=== PATIENT | male | born 1960 | race Caucasian/White ===

== ENCOUNTER 2018-01-06 13:53 | Emergency (ER) | payer BC ==
[2018-01-06] MEDS ORDERED: Metoclopramide 10 MG/2 ML SDV IVPUSH ONE (14:01)
--- NOTE | 2018-01-06 14:01 | EDM.PDOC ---
ED HPI GENERAL MEDICAL PROBLEM - General Chief Complaint: Neuro Symptoms/Deficits Stated Complaint: PASSED OUT Time Seen by Provider: 01/06/18 13:54 Source of Information: Reports: Patient History Limitations: Reports: No Limitations - History of Present Illness INITIAL COMMENTS - FREE TEXT/NARRATIVE: 57-year-old male presents to the ED through the ambulance bay. He is obtunded. His reports that he called her couple hours ago indicating that he was not feeling going good and was going to come home from work. When she arrived at noon she found him sitting in the car outside of the home confused and disoriented. He is a known diabetic but blood sugar here in the department at the bedside was 145. Apparently he has been vomiting on scene. Emesis was estimated to be about 500 mils in the collection chamber without any blood. Patient is unable to provide any useful history when I seen him. Once things calm down he was able to speak in one or 2 word sentences and the nurses were able to get him to identify that he was oriented to person place . 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 He presents cool clammy and diaphoretic .Initially I felt he was likely going to to be suffering from hypoglycemia. Therefore initially it is unclear what is causing his altered mental status. His is not here yet to help sort through what has happened to him. Onset: Today Onset Date: 01/06/18 Onset Time: 12:00 Duration: Hour(s): Location: Reports: Abdomen (Feeling queasy like he might vomit. Started feeling ill about 10:00 this morning) Quality: Reports: Other Severity: Moderate (Dizziness nausea.) Improves with: Reports: None Worsens with: Reports: None Context: Reports: Other (Patient by history has a neurogenic bladder and suspect gastroparesis and likely autonomic nervous system dysfunction related to diabetes. He states he's always feels queasy and he can vomit spontaneously at any time. Started to feel increasingly unwell while at work this morning and 40 his indicates likely going to go home from work. He did go home for dinner and did eat a little bit. He then did head back to work for short period of time.). Denies: Activity, Exercise, Lifting, Sick Contact, Trauma Associated Symptoms: Reports: Confusion, Diaphoresis, Loss of Appetite, Malaise , Nausea/Vomiting. 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 None.) - Related Data Allergies Allergy/AdvReac Type Severity Reaction Status Date / Time Iodinated Contrast- Oral and Allergy Hives Verified 01/07/18 09:30 IV Dye Home Meds: Home Meds Ascorbic Acid [Vitamin C] 500 mg PO DAILY 03/04/14 [History] Aspirin [Glascock Aspirin] 81 mg PO DAILY 03/04/14 [History] Doxazosin [Doxazosin Mesylate] 8 mg PO BEDTIME 03/04/14 [History] Multivitamin [Multivitamins] 1 each PO DAILY 03/04/14 [History] Multivitamins/Min/FA/Lut/Zeax [ICaps MV] 1 each PO DAILY 03/04/14 [History] Simvastatin [Zocor] 20 mg PO BEDTIME 03/04/14 [History] Insulin Aspart [NovoLOG] 1 ampule SQ DAILY 07/23/15 [History] Cranberry 500 mg PO DAILY 10/27/15 [History] Meloxicam 15 mg PO DAILY 10/27/15 [History] Calcium/Magnesium/Vit D3 [Calcium 500 MG] 1 tab PO DAILY 03/06/16 [History] Fish Oil/DHA/EPA [Fish Oil 1,200 MG] 1 cap PO DAILY 03/06/16 [History] Albuterol [Proventil HFA] 2 puff INH Q4H PRN 01/06/18 [History] Benzonatate 200 mg PO 01/06/18 [History] Past Medical History HEENT History: Reports: Impaired Vision Other HEENT History: wears glasses Cardiovascular History: Reports: Heart Murmur, High Cholesterol Gastrointestinal History: Reports: Other (See Below) Other Gastrointestinal History: gallstones. 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 Genitourinary History: Reports: Neurogenic Bladder (Self catheters himself 3 times daily.), Other (See Below) Other Genitourinary History: dysuria, UTI, cystitis, renal stricture Other Musculoskeletal History: arthirits joint pain Endocrine/Metabolic History: Reports: Diabetes, Type II Other Endocrine/Metabolic History: on insulin pump - Past Surgical History GI Surgical History: Reports: Colonoscopy Social & Family History - Tobacco Use Smoking Status *Q: Former Smoker Years of Tobacco use: 20 Second Hand Smoke Exposure: No - Recreational Drug Use Recreational Drug Use: No Drug Use in Last 12 Months: No - Living Situation & Occupation Living situation: Reports: Occupation: Employed ED ROS GENERAL - Review of Systems Review Of Systems: See Below Constitutional: Reports: Malaise, Weakness, Fatigue, Decreased Appetite, Weight Loss. Denies: Fever, Chills HEENT: Reports: Glasses Respiratory: Reports: No Symptoms. Denies: Cough, Sputum Cardiovascular: Reports: No Symptoms Endocrine: Reports: Fatigue GI/Abdominal: Reports: Abdominal Pain, Decreased Appetite, Nausea, Vomiting. Denies: Distension (Current vomiting while sitting in his car outside his home.) , Flatus, Hematemesis : Reports: Other (He last self catheterized at noon today.). Denies: Flank Pain Musculoskeletal: Reports: Back Pain, Joint Pain Skin: Reports: Pallor Neurological: Reports: Confusion, Dizziness, Trouble Speaking, Difficulty Walking Psychiatric: Reports: Confusion Hematologic/Lymphatic: Reports: No Symptoms Immunologic: Reports: No Symptoms ED EXAM, NEURO - Physical Exam Exam: See Below Exam Limited By: Altered Mental Status ( is confused disoriented and appears lethargic and unable to provide any useful history at the initial time of examination.) General Appearance: Severe Distress (Cool pallid confused disoriented and lethargic. By history he has been vomiting in his vehicle outside his home.) Eye Exam: Bilateral Eye: Normal Inspection, PERRL (No gaze palsy appreciated) Throat/Mouth: Normal Inspection, Normal Lips, Normal Oropharynx, Other (No evidence of tongue injury to suggest seizure.) Head Exam: Atraumatic, Normocephalic Neck: Normal Inspection, Supple, Non-Tender, Full Range of Motion. No: Lymphadenopathy (L), Lymphadenopathy (R) Respiratory/Chest: Lungs Clear, Respiratory Distress (On my assessment he is hyperventilating at 26/m.), Other (Upper lung parekh appear to be clear with no evidence of aspiration.). No: Crackles, Rales, Rhonchi, Wheezing Cardiovascular: Normal Peripheral Pulses, Regular Rate, Rhythm, No Edema, No Gallop, Systolic Murmur (Grade 1 pansystolic ejection murmur heard best at the left lateral sternal border.) GI/Abdominal: Normal Bowel Sounds, Soft, Non-Tender, No Organomegaly Neurological: Other (Neuro exam was initially not able to be carried out because the patient was so confused and disoriented he could not cooperate. He appeared lethargic speech was one or 2 word sentences.). No: Oriented x 3 DTR: 0: Achilles (R), Achilles (L), 1+: Bicep (R), Bicep (L), Patella (R), Patella (L) Back Exam: Normal Inspection Extremities: Normal Inspection, Normal Range of Motion, Non-Tender, Other (No signs of injuries to his extremities.) Skin Exam: Cool, Diaphoretic, Other (Pallid cool clammy and diaphoretic.) EKG INTERPRETATION EKG Date: 01/06/18 Time: 14:10 Rhythm: NSR Rate (Beats/Min): 62 Lavina: LAD-Left Lavina Deviation (Mild plaque left axis deviation of -5) P-Wave: Present (First-degree AV block.) QRS: Other (There are Q waves in V1 and V2 and near Q-wave in V3 consideration for an old anteroseptal myocardial infarction evident.) ST-T: Other (Diffuse acute repolarization abnormality appreciated in the anteroseptal leads.) QT: Normal EKG Interpretation Comments: Abnormal ECG Course - Vital Signs Last Recorded V/S: Last Vital Signs Temp 36.6 C 01/06/18 14:00 Pulse 69 01/06/18 14:00 Resp 17 01/06/18 14:00 BP 156/90 H 01/06/18 14:00 Pulse Ox 100 01/06/18 14:00 - Orders/Labs/Meds Orders: Active Orders 24 hr Category Date Time Status Blood Glucose Check, Bedside [RC] ONETIME Care 01/06/18 13:57 Active EKG Documentation Completion [RC] STAT Care 01/06/18 13:55 Active EKG Documentation Completion [RC] STAT Care 01/06/18 13:56 Inactive CULTURE URINE [RM] Stat Lab 01/06/18 16:00 Results Labs: Laboratory Tests 01/06/18 01/06/18 01/06/18 Range/Units 13:50 13:50 13:50 WBC 5.86 (4.23-9.07) K/mm3 RBC 4.91 (4.63-6.08) M/mm3 Hgb 14.3 (13.7-17.5) gm/L Hct 42.4 (40.1-51.0) % MCV 86.4 (79.0-92.2) fl MCH 29.1 (25.7-32.2) pg MCHC 33.7 (32.2-35.5) g/dl RDW Std Deviation 40.2 (35.1-43.9) fL Plt Count 207 (163-337) K/mm3 MPV 9.6 (9.4-12.3) fl Neutrophils % (Manual) 43 (40-60) % Band Neutrophils % 0 (0-10) % Lymphocytes % (Manual) 47 H (20-40) % Atypical Lymphs % 0 % Monocytes % (Manual) 4 (2-10) % Eosinophils % (Manual) 5 (0.8-7.0) % Basophils % (Manual) 1 (0.2-1.2) Platelet Estimate Adequate RBC Morph Comment Normal PT 9.7 (8.0-13.0) SECONDS INR 0.90 D-Dimer, Quantitative (0.19-0.59) mg/L Puncture Site ABG pH (7.35-7.45) ABG pCO2 (35.0-45.0) mmHg ABG pO2 (80.0-100.0) mmHg ABG HCO3 (22.0-26.0) meq/L ABG O2 Saturation (96.0-97.0) % ABG Base Excess (-2-2.0) ABG Carboxyhemoglobin (0.00-1.50) %THgb FiO2 (21.00-100.00) % Sodium 141 (136-145) mEq/L Potassium 3.3 L (3.5-5.1) mEq/L Chloride 103 (98-107) mEq/L Carbon Dioxide 24 (21-32) mEq/L Anion Gap 17.3 H (5-15) BUN 16 (7-18) mg/dL Creatinine 1.3 (0.7-1.3) mg/dL Est Cr Clr Drug Dosing 62.12 mL/min Estimated GFR (MDRD) 57 (>60) mL/min BUN/Creatinine Ratio 12.3 L (14-18) Glucose 139 H (74-106) mg/dL Calcium 9.4 (8.5-10.1) mg/dL Total Bilirubin 0.4 (0.2-1.0) mg/dL AST 30 (15-37) U/L ALT 38 (16-63) U/L Alkaline Phosphatase 56 (46-116) U/L CK-MB (CK-2) 0.9 (0-3.6) ng/ml Troponin I < 0.017 (0.00-0.056) ng/mL C-Reactive Protein < 0.2 (<1.0) mg/dL Total Protein 7.5 (6.4-8.2) g/dl Albumin 4.1 (3.4-5.0) g/dl Globulin 3.4 gm/dL Albumin/Globulin Ratio 1.2 (1-2) Urine Color (Yellow) Urine Appearance (Clear) Urine pH (5.0-8.0) Ur Specific [place] (1.005-1.030) Urine Protein (Negative) Urine Glucose (UA) (Negative) Urine Ketones (Negative) Urine Occult Blood (Negative) Urine Nitrite (Negative) Urine Bilirubin (Negative) Urine Urobilinogen (0.2-1.0) Ur Leukocyte Esterase (Negative) Urine RBC (0-5) /hpf Urine WBC (0-5) /hpf Ur Epithelial Cells (0-5) /hpf Urine Bacteria (FEW) /hpf Urine Mucus (FEW) /hpf Urine Opiates Screen (NEGATIVE) Ur Buprenorphine Scrn (NEGATIVE) Ur Oxycodone Screen (NEGATIVE) Urine Methadone Screen (NEGATIVE) Ur Propoxyphene Screen (NEGATIVE) Ur Barbiturates Screen (NEGATIVE) Ur Tricyclics Screen (NEGATIVE) Ur Phencyclidine Scrn (NEGATIVE) Ur Amphetamine Screen (NEGATIVE) U Methamphetamines Scrn (NEGATIVE) U Benzodiazepines Scrn (NEGATIVE) U Cocaine Metab Screen (NEGATIVE) U Marijuana (THC) Screen (NEGATIVE) Ethyl Alcohol 0.00 (0.00) gm% 01/06/18 01/06/18 01/06/18 Range/Units 13:50 13:59 14:25 WBC (4.23-9.07) K/mm3 RBC (4.63-6.08) M/mm3 Hgb (13.7-17.5) gm/L Hct (40.1-51.0) % MCV (79.0-92.2) fl MCH (25.7-32.2) pg MCHC (32.2-35.5) g/dl RDW Std Deviation (35.1-43.9) fL Plt Count (163-337) K/mm3 MPV (9.4-12.3) fl Neutrophils % (Manual) (40-60) % Band Neutrophils % (0-10) % Lymphocytes % (Manual) (20-40) % Atypical Lymphs % % Monocytes % (Manual) (2-10) % Eosinophils % (Manual) (0.8-7.0) % Basophils % (Manual) (0.2-1.2) Platelet Estimate RBC Morph Comment PT (8.0-13.0) SECONDS INR D-Dimer, Quantitative 0.33 (0.19-0.59) mg/L Puncture Site Lt radial ABG pH 7.61 H* (7.35-7.45) ABG pCO2 21.7 L (35.0-45.0) mmHg ABG pO2 68.0 L (80.0-100.0) mmHg ABG HCO3 21.9 L (22.0-26.0) meq/L ABG O2 Saturation 97.6 H (96.0-97.0) % ABG Base Excess 2.2 H (-2-2.0) ABG Carboxyhemoglobin 1.7 H (0.00-1.50) %THgb FiO2 0.00 L (21.00-100.00) % Sodium (136-145) mEq/L Potassium (3.5-5.1) mEq/L Chloride (98-107) mEq/L Carbon Dioxide (21-32) mEq/L Anion Gap (5-15) BUN (7-18) mg/dL Creatinine (0.7-1.3) mg/dL Est Cr Clr Drug Dosing mL/min Estimated GFR (MDRD) (>60) mL/min BUN/Creatinine Ratio (14-18) Glucose (74-106) mg/dL Calcium (8.5-10.1) mg/dL Total Bilirubin (0.2-1.0) mg/dL AST (15-37) U/L ALT (16-63) U/L Alkaline Phosphatase (46-116) U/L CK-MB (CK-2) (0-3.6) ng/ml Troponin I (0.00-0.056) ng/mL C-Reactive Protein (<1.0) mg/dL Total Protein (6.4-8.2) g/dl Albumin (3.4-5.0) g/dl Globulin gm/dL Albumin/Globulin Ratio (1-2) Urine Color (Yellow) Urine Appearance (Clear) Urine pH (5.0-8.0) Ur Specific [place] (1.005-1.030) Urine Protein (Negative) Urine Glucose (UA) (Negative) Urine Ketones (Negative) Urine Occult Blood (Negative) Urine Nitrite (Negative) Urine Bilirubin (Negative) Urine Urobilinogen (0.2-1.0) Ur Leukocyte Esterase (Negative) Urine RBC (0-5) /hpf Urine WBC (0-5) /hpf Ur Epithelial Cells (0-5) /hpf Urine Bacteria (FEW) /hpf Urine Mucus (FEW) /hpf Urine Opiates Screen (NEGATIVE) Ur Buprenorphine Scrn (NEGATIVE) Ur Oxycodone Screen (NEGATIVE) Urine Methadone Screen (NEGATIVE) Ur Propoxyphene Screen (NEGATIVE) Ur Barbiturates Screen (NEGATIVE) Ur Tricyclics Screen (NEGATIVE) Ur Phencyclidine Scrn (NEGATIVE) Ur Amphetamine Screen (NEGATIVE) U Methamphetamines Scrn (NEGATIVE) U Benzodiazepines Scrn (NEGATIVE) U Cocaine Metab Screen (NEGATIVE) U Marijuana (THC) Screen (NEGATIVE) Ethyl Alcohol (0.00) gm% 01/06/18 01/06/18 Range/Units 16:05 16:05 WBC (4.23-9.07) K/mm3 RBC (4.63-6.08) M/mm3 Hgb (13.7-17.5) gm/L Hct (40.1-51.0) % MCV (79.0-92.2) fl MCH (25.7-32.2) pg MCHC (32.2-35.5) g/dl RDW Std Deviation (35.1-43.9) fL Plt Count (163-337) K/mm3 MPV (9.4-12.3) fl Neutrophils % (Manual) (40-60) % Band Neutrophils % (0-10) % Lymphocytes % (Manual) (20-40) % Atypical Lymphs % % Monocytes % (Manual) (2-10) % Eosinophils % (Manual) (0.8-7.0) % Basophils % (Manual) (0.2-1.2) Platelet Estimate RBC Morph Comment PT (8.0-13.0) SECONDS INR D-Dimer, Quantitative (0.19-0.59) mg/L Puncture Site ABG pH (7.35-7.45) ABG pCO2 (35.0-45.0) mmHg ABG pO2 (80.0-100.0) mmHg ABG HCO3 (22.0-26.0) meq/L ABG O2 Saturation (96.0-97.0) % ABG Base Excess (-2-2.0) ABG Carboxyhemoglobin (0.00-1.50) %THgb FiO2 (21.00-100.00) % Sodium (136-145) mEq/L Potassium (3.5-5.1) mEq/L Chloride (98-107) mEq/L Carbon Dioxide (21-32) mEq/L Anion Gap (5-15) BUN (7-18) mg/dL Creatinine (0.7-1.3) mg/dL Est Cr Clr Drug Dosing mL/min Estimated GFR (MDRD) (>60) mL/min BUN/Creatinine Ratio (14-18) Glucose (74-106) mg/dL Calcium (8.5-10.1) mg/dL Total Bilirubin (0.2-1.0) mg/dL AST (15-37) U/L ALT (16-63) U/L Alkaline Phosphatase (46-116) U/L CK-MB (CK-2) (0-3.6) ng/ml Troponin I (0.00-0.056) ng/mL C-Reactive Protein (<1.0) mg/dL Total Protein (6.4-8.2) g/dl Albumin (3.4-5.0) g/dl Globulin gm/dL Albumin/Globulin Ratio (1-2) Urine Color Yellow (Yellow) Urine Appearance Clear (Clear) Urine pH 8.5 H (5.0-8.0) Ur Specific [place] 1.020 (1.005-1.030) Urine Protein Trace H (Negative) Urine Glucose (UA) Negative (Negative) Urine Ketones 1+ H (Negative) Urine Occult Blood Negative (Negative) Urine Nitrite Negative (Negative) Urine Bilirubin Negative (Negative) Urine Urobilinogen 0.2 (0.2-1.0) Ur Leukocyte Esterase Trace H (Negative) Urine RBC 0-5 (0-5) /hpf Urine WBC 5-10 H (0-5) /hpf Ur Epithelial Cells 0-5 (0-5) /hpf Urine Bacteria Moderate H (FEW) /hpf Urine Mucus Few (FEW) /hpf Urine Opiates Screen Negative (NEGATIVE) Ur Buprenorphine Scrn Negative (NEGATIVE) Ur Oxycodone Screen Negative (NEGATIVE) Urine Methadone Screen Negative (NEGATIVE) Ur Propoxyphene Screen Negative (NEGATIVE) Ur Barbiturates Screen Negative (NEGATIVE) Ur Tricyclics Screen Negative (NEGATIVE) Ur Phencyclidine Scrn Negative (NEGATIVE) Ur Amphetamine Screen Negative (NEGATIVE) U Methamphetamines Scrn Negative (NEGATIVE) U Benzodiazepines Scrn Negative (NEGATIVE) U Cocaine Metab Screen Negative (NEGATIVE) U Marijuana (THC) Screen Negative (NEGATIVE) Ethyl Alcohol (0.00) gm% Meds: Medications Discontinued Medications Generic Name Dose Route Start Last Admin Trade Name Freq PRN Reason Stop Dose Admin Sodium Chloride 1,000 mls @ 150 mls/hr 01/06/18 14:15 01/06/18 14:18 Normal Saline IV 150 mls/hr ASDIRECTED NASREEN Administration Sodium Chloride 500 mls @ 999 mls/hr 01/06/18 17:31 Normal Saline IV 01/06/18 18:01 .BOLUS ONE Metoclopramide HCl 10 mg 01/06/18 14:01 01/06/18 14:18 Reglan IVPUSH 01/06/18 14:02 10 mg ONETIME ONE Administration - Radiology Interpretation Free Text/Narrative:: 57-year-old male presents to the ED in a rather obtunded state. He's cool clammy and continues to vomit. Initially he was unable to provide any useful history. Turn for a possible neurological event her hypoglycemia was evident. Blood sugar the bedside was 143. He was therefore taken to CT immediately and CT of the brain appears to be normal. History provided by his indicates that he called her at 10:00 this morning indicating he was not feeling well was going to go home from work. When she went home at noon she found him in the car still parked in front of the house and he had vomited over 500 mils into a bag. No blood was evident. He was cool clammy and diaphoretic and she therefore called the ambulance. Plan routine labs ABGs to make sure he is not exposed to carbon monoxide. - Re-Assessments/Exams Free Text/Narrative Re-Assessment/Exam: 01/06/18 14:06 CT of his brain and head is been completed. It reveals no skull fractures no intracranial bleeding or mass effect. No signs of obvious ischemic change. One view chest x-ray is once again poorly done. Is rotated to the right making the right hilum and superior mediastinum more magnified than normal. He appears to have bilateral mild pulmonary artery distention. Mild diffuse vascular congestion pattern. Heart size is normal. Old healed fracture left clavicle appreciated minimal scoliosis appreciated of the thoracic spine. 01/06/18 16:08 White count is 5.86 with a normal differential of 43% neutrophils and 47% lymphocytes suggesting a viral etiology. Hemoglobin is 14.3 with hematocrit of 42.4. Platelet count 207,000. PT is 9.7 with an INR of 0.90. D-dimer normal at 0.33. His ABGs revealed a pH of 7.61 i.e. a respiratory alkalosis. PCO2 is 21.7. PO2 of 68.0 bicarbonate 21.9 low. O2 saturation was 97.6%. This does not correlate with a PCO2 of 68. Carboxyhemoglobin was normal at 1.7. Sodium was 141. Potassium 3.3. Chloride 103 with a bicarbonate 24. And a gap slightly elevated at 17.3. BUN of 16 creatinine 1.3. Glucose 139. Calcium 9.4. Liver function normal cardiac markers all normal. C-reactive protein less than 0.2. Blood alcohol 0. Awaiting urinalysis. He self caths 3 times daily. 01/06/18 17:32 the urine shows moderate bacteria which I cultured. However the leukocyte Estrace was only a trace and there is no pus cells on the micro-. Also get him up standing and walking he is orthostatic with BP dropping from 175 -138 systolic. His may be autonomic dysfunction due to his diabetes. However he is been ill the last several days and there is a trace of ketones in his urine. Blood sugar currently is reading on his monitor 155. Plan I will give him normal saline 500 mils bolus. 01/06/18 1830: Had him up walking around in his room and he is doing fine. Repeat orthostatic BPs reveal no orthostasis. He states he feels much improved. He will therefore be discharged home in the care of his . The exact cause of his spell today is unclear. Possible gastroenteritis with spontaneous nausea vomiting and severe vagal reflex I suspect clinically has a gastroparesis and likely autonomic nervous system dysfunction related to his diabetes. He will be following up with his primary care physician Departure - Departure Time of Disposition: 18:36 Disposition: Home, Self-Care 01 Condition: Fair Clinical Impression: Vaso-vagal reaction Nausea & vomiting Qualifiers: Vomiting type: bilious vomiting Qualified Code(s): R11.14 - Bilious vomiting - Discharge Information Instructions: Gastroparesis Referrals: Panda Bright MD [Primary Care Provider] - Forms: ED Department Discharge Additional Instructions: Evaluation in the emergency room today in regards to acute onset of illness with nausea vomiting. He already ill with RSV virus infection with harsh paroxysmal choking cough at times. This was diagnosed on Wednesday [address] of the head did not show any abnormalities as when he presented to the ED were rather obtunded cool and clammy with a normal blood sugar of 145. CT was done to rule out any brain bleeding that would cause your mentation to be abnormal. IV fluids were started he were given Reglan 10 mg IV to arrest vomiting. Lab work subsequently did not identify any positive your heart, liver kidneys etc. Did suggest a viral infection with a normal white count at 5.7. Lines of a bacterial infection were identified. He did identify that you're mildly volume depleted and therefore you're given an extra 500 mils of normal saline while in the ED and this improved her blood pressures to normal. Suggest off work tomorrow. Try and get over this viral upper respiratory tract infection as the cough with RSV will usually lasts at least a week. You appear to have some problems with her autonomic nervous system secondary to diabetes with bladder not emptying completely as well as likely the stomach not " churning" food normally which we call gastroparesis. This is a common problem in diabetics. May resume diet as tolerated. I will leave it up to you whether or not to continue with albuterol treatments as if you feel that they make things worse than I would discontinue this treatment as it is only beneficial in about 40% of patients. Cool mist medications sleeping quarters may be more beneficial to helping her cough. - My Orders Last 24 Hours: My Active Orders 01/06/18 13:55 EKG Documentation Completion [RC] STAT 01/06/18 13:56 EKG Documentation Completion [RC] STAT 01/06/18 13:57 Blood Glucose Check, Bedside [RC] ONETIME 01/06/18 16:00 CULTURE URINE [RM] Stat - Assessment/Plan Last 24 Hours: My Active Orders 01/06/18 13:55 EKG Documentation Completion [RC] STAT 01/06/18 13:56 EKG Documentation Completion [RC] STAT 01/06/18 13:57 Blood Glucose Check, Bedside [RC] ONETIME 01/06/18 16:00 CULTURE URINE [RM] Stat
--- NOTE | 2018-01-06 14:14 | CT ---
Head CT Technique: Multiple axial sections through the brain were obtained. Intravenous contrast was not utilized. Comparison: No prior intracranial imaging. Findings: Ventricles along with basal cisterns and sulci over the convexities are within normal limits for the patient's age. No abnormal parenchymal densities are seen. No evidence of intracranial hemorrhage. No midline shift or mass effect is seen. Bone window settings were reviewed which shows mild mucosal thickening scattered throughout the ethmoid sinuses as well as within the frontal sinus. No acute calvarial abnormality is seen. Impression: 1. Sinus disease which is most likely due to chronic sinusitis. 2. No acute intracranial abnormality is identified. Diagnostic code #2
[2018-01-06 14:15] VITALS: BP 156/90
[2018-01-06] MEDS ORDERED: Sodium Chloride 0.9% 1,000 ML IV SCH (14:15)
--- NOTE | 2018-01-06 14:44 | CR ---
Chest: Portable view of the chest was obtained. Comparison: No prior chest x-rays available. Heart size is normal. Upper mediastinum is normal. Lungs are clear. Old healed left clavicle fracture is noted. Minimal scoliosis is noted. Impression: 1. Incidental findings. Nothing acute is identified. Diagnostic code #2
[2018-01-06] MEDS ORDERED: Sodium Chloride 0.9% 500 ML IV ONE (17:31)
== END 2018-01-06 18:50 | disposition home or self-care (01) ==
LOC: JD.ED 13:53
DX: R55 Syncope and collapse (principal); R11.2 Nausea with vomiting, unspecified; Z87.891 Personal history of nicotine dependence; E78.00 Pure hypercholesterolemia, unspecified; E11.9 Type 2 diabetes mellitus without complications; Z79.82 Long term (current) use of aspirin; Z79.4 Long term (current) use of insulin; Z79.899 Other long term (current) drug therapy; Z91.041 Radiographic dye allergy status
CPT/HCPCS: 36415; 36600; 70450; 71045; 80053; 80306; 81001; 82375; 82553; 82803; 84484; 85025; 85379; 85610; 86140; 87086; 87088; 87186; 93005; 96361; 96374; 99285; G0480; J2765; J7040; P9612; 93010; 99284-25

== ENCOUNTER 2019-12-05 06:30 | Emergency (ER) | payer BC ==
[2019-12-05 06:41] VITALS: BP 154/64; PULSE 92
--- NOTE | 2019-12-05 08:01 | EDM.PDOC ---
ED HPI GENERAL MEDICAL PROBLEM - General Chief Complaint: Diabetic Complaint Stated Complaint: HIGH BLOOD SUGAR Time Seen by Provider: 12/05/19 06:58 Source of Information: Reports: Patient History Limitations: Reports: No Limitations - History of Present Illness INITIAL COMMENTS - FREE TEXT/NARRATIVE: The patient presents with elevated blood sugars. The patient is type I diabetic and he has an insulin pump. He was low after work last night and he took some sugar. He then went up all night. He was as high as 600. There has been no change in his insulin dosing. He has not been ill. He has no fever, chills, cough, congestion, runny nose, ear pain or sore throat. He has no chest pain, shortness of breath, abdominal pain, nausea or vomiting. This has happened before in September and no cause was found. Onset: Gradual Duration: Day(s): (Last night) Improves with: Reports: None Worsens with: Reports: None Associated Symptoms: Reports: No Other Symptoms - Related Data Allergies Allergy/AdvReac Type Severity Reaction Status Date / Time acetaminophen [From Tylenol] Allergy Other Verified 12/05/19 06:41 Iodinated Contrast Media Allergy Hives Verified 10/12/19 14:40 [Iodinated Contrast- Oral and IV Dye] Home Meds: Home Meds Ascorbic Acid [Vitamin C] 500 mg PO DAILY 03/04/14 [History] Aspirin [[place] Aspirin] 81 mg PO DAILY 03/04/14 [History] Doxazosin [Doxazosin Mesylate] 8 mg PO BEDTIME 03/04/14 [History] Multivitamin [Multivitamins] 1 each PO DAILY 03/04/14 [History] Multivitamins/Min/FA/Lut/Zeax [ICaps MV] 1 each PO DAILY 03/04/14 [History] Cranberry 500 mg PO DAILY 10/27/15 [History] Meloxicam 15 mg PO DAILY 10/27/15 [History] Calcium/Magnesium/Vit D3 [Calcium 500 MG] 1 tab PO DAILY 03/06/16 [History] Fish Oil/DHA/EPA [Fish Oil 1,200 MG] 1 cap PO DAILY 03/06/16 [History] Albuterol [Proventil HFA] 2 puff INH Q4H PRN 01/06/18 [History] Benzonatate 200 mg PO 02/08/18 [History] Insulin Aspart (Niacinamide) [Fiasp Penfill 100 Unit/ml Cart] 0 unit SQ DAILY [History] Rosuvastatin [Crestor] 8 mg PO DAILY 10/12/19 [History] Past Medical History HEENT History: Reports: Impaired Vision Other HEENT History: wears glasses Cardiovascular History: Reports: Heart Murmur, High Cholesterol Other Cardiovascular History: "Bicuspid aortic valve that flows both ways." Respiratory History: Reports: None Gastrointestinal History: Reports: Other (See Below) Other Gastrointestinal History: gallstones. 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 Fructose Malabsorption. Genitourinary History: Reports: Neurogenic Bladder, Other (See Below) Other Genitourinary History: dysuria, UTI, cystitis, renal stricture. Pt self caths. Other Musculoskeletal History: arthirits joint pain Neurological History: Reports: None Psychiatric History: Reports: None Endocrine/Metabolic History: Reports: Diabetes, Type II Other Endocrine/Metabolic History: on insulin pump Who Manages Your Pump: Patient (Self) Hematologic History: Reports: None Immunologic History: Reports: None Oncologic (Cancer) History: Reports: None Dermatologic History: Reports: None - Infectious Disease History Infectious Disease History: Reports: None - Past Surgical History GI Surgical History: Reports: Cholecystectomy, Colonoscopy, EGD Male Surgical History: Reports: Vasectomy, Other (See Below) Other Male Surgeries/Procedures: Cystoscopy Musculoskeletal Surgical History: Reports: Shoulder Surgery Other Musculoskeletal Surgeries/Procedures:: Right Shoulder Surgery Social & Family History - Tobacco Use Smoking Status *Q: Never Smoker - Caffeine Use Caffeine Use: Reports: Coffee - Living Situation & Occupation Living situation: Reports: Occupation: Employed ED ROS GENERAL - Review of Systems Review Of Systems: See Below Constitutional: Reports: No Symptoms HEENT: Reports: No Symptoms Respiratory: Reports: No Symptoms Cardiovascular: Reports: No Symptoms Endocrine: Reports: No Symptoms GI/Abdominal: Reports: No Symptoms : Reports: No Symptoms Musculoskeletal: Reports: No Symptoms Skin: Reports: No Symptoms ED EXAM GENERAL NO PERIP PULSE - Physical Exam Exam: See Below Exam Limited By: No Limitations General Appearance: Alert, No Apparent Distress Ears: Normal External Exam Nose: Normal Inspection Head: Atraumatic, Normocephalic Neck: Normal Inspection Respiratory/Chest: No Respiratory Distress, Lungs Clear, Normal Breath Sounds Cardiovascular: Regular Rate, Rhythm, No Edema, No Murmur GI/Abdominal: Soft, Non-Tender, No Organomegaly, No Mass Back Exam: Normal Inspection Extremities: Normal Inspection Course - Vital Signs Last Recorded V/S: Last Vital Signs Temp 97.5 F 12/05/19 06:38 Pulse 92 12/05/19 06:38 Resp 16 12/05/19 06:38 BP 154/64 H 12/05/19 06:38 Pulse Ox 97 12/05/19 06:38 - Orders/Labs/Meds Labs: Laboratory Tests 12/05/19 12/05/19 12/05/19 Range/Units 07:12 07:12 07:12 WBC 5.30 (4.23-9.07) K/mm3 RBC 4.87 (4.63-6.08) M/mm3 Hgb 14.2 (13.7-17.5) gm/dl Hct 42.6 (40.1-51.0) % MCV 87.5 (79.0-92.2) fl MCH 29.2 (25.7-32.2) pg MCHC 33.3 (32.2-35.5) g/dl RDW Std Deviation 40.8 (35.1-43.9) fL Plt Count 190 (163-337) K/mm3 MPV 10.0 (9.4-12.3) fl Neut % (Auto) 65.3 (34.0-67.9) % Lymph % (Auto) 21.5 L (21.8-53.1) % [place] % (Auto) 9.8 (5.3-12.2) % Eos % (Auto) 2.8 (0.8-7.0) Baso % (Auto) 0.6 (0.1-1.2) % Neut # (Auto) 3.46 (1.78-5.38) K/mm3 Lymph # (Auto) 1.14 L (1.32-3.57) K/mm3 [place] # (Auto) 0.52 (0.30-0.82) K/mm3 Eos # (Auto) 0.15 (0.04-0.54) K/mm3 Baso # (Auto) 0.03 (0.01-0.08) K/mm3 Manual Slide Review Puncture Site ABG pH (7.35-7.45) ABG pCO2 (35.0-45.0) mmHg ABG pO2 (80.0-100.0) mmHg ABG HCO3 (22.0-26.0) meq/L ABG O2 Saturation (96.0-97.0) % ABG Base Excess (-2-2.0) Matt Test A-a Gradient mmHg O2 Delivery Device FiO2 (21.00-100.00) % Sodium 134 L (136-145) mEq/L Potassium 4.6 (3.5-5.1) mEq/L Chloride 100 (98-107) mEq/L Carbon Dioxide 24 (21-32) mEq/L Anion Gap 14.6 (5-15) BUN 21 H (7-18) mg/dL Creatinine 1.1 (0.7-1.3) mg/dL Est Cr Clr Drug Dosing 74.09 mL/min Estimated GFR (MDRD) > 60 (>60) mL/min BUN/Creatinine Ratio 19.1 H (14-18) Glucose 447 H (74-106) mg/dL Serum Osmolality 310 H (280-300) mosm/kg Calcium 8.7 (8.5-10.1) mg/dL Total Bilirubin 0.8 (0.2-1.0) mg/dL AST 14 L (15-37) U/L ALT 21 (16-63) U/L Alkaline Phosphatase 55 (46-116) U/L Total Protein 6.9 (6.4-8.2) g/dl Albumin 3.9 (3.4-5.0) g/dl Globulin 3.0 gm/dL Albumin/Globulin Ratio 1.3 (1-2) Ketones (0.0-0.3) mM 12/05/19 12/05/19 Range/Units 07:12 07:18 WBC (4.23-9.07) K/mm3 RBC (4.63-6.08) M/mm3 Hgb (13.7-17.5) gm/dl Hct (40.1-51.0) % MCV (79.0-92.2) fl MCH (25.7-32.2) pg MCHC (32.2-35.5) g/dl RDW Std Deviation (35.1-43.9) fL Plt Count (163-337) K/mm3 MPV (9.4-12.3) fl Neut % (Auto) (34.0-67.9) % Lymph % (Auto) (21.8-53.1) % [place] % (Auto) (5.3-12.2) % Eos % (Auto) (0.8-7.0) Baso % (Auto) (0.1-1.2) % Neut # (Auto) (1.78-5.38) K/mm3 Lymph # (Auto) (1.32-3.57) K/mm3 [place] # (Auto) (0.30-0.82) K/mm3 Eos # (Auto) (0.04-0.54) K/mm3 Baso # (Auto) (0.01-0.08) K/mm3 Manual Slide Review Puncture Site Lt radial ABG pH 7.36 (7.35-7.45) ABG pCO2 40.2 (35.0-45.0) mmHg ABG pO2 87.0 (80.0-100.0) mmHg ABG HCO3 22.0 (22.0-26.0) meq/L ABG O2 Saturation 97.2 H (96.0-97.0) % ABG Base Excess -2.8 L (-2-2.0) Matt Test Positive A-a Gradient 13 mmHg O2 Delivery Device Room air FiO2 21.00 (21.00-100.00) % Sodium (136-145) mEq/L Potassium (3.5-5.1) mEq/L Chloride (98-107) mEq/L Carbon Dioxide (21-32) mEq/L Anion Gap (5-15) BUN (7-18) mg/dL Creatinine (0.7-1.3) mg/dL Est Cr Clr Drug Dosing mL/min Estimated GFR (MDRD) (>60) mL/min BUN/Creatinine Ratio (14-18) Glucose (74-106) mg/dL Serum Osmolality (280-300) mosm/kg Calcium (8.5-10.1) mg/dL Total Bilirubin (0.2-1.0) mg/dL AST (15-37) U/L ALT (16-63) U/L Alkaline Phosphatase (46-116) U/L Total Protein (6.4-8.2) g/dl Albumin (3.4-5.0) g/dl Globulin gm/dL Albumin/Globulin Ratio (1-2) Ketones 1.7 (0.0-0.3) mM Meds: Medications Discontinued Medications Generic Name Dose Route Start Last Admin Trade Name Yan PRN Reason Stop Dose Admin Insulin Human Regular 10 unit 12/05/19 08:13 12/05/19 08:29 Humulin R SUBCUT 12/05/19 08:14 10 unit ONETIME ONE Administration - Re-Assessments/Exams Free Text/Narrative Re-Assessment/Exam: 12/05/19 08:00 His CBC looks good. His Na was a little low at 134. His glucose was elevated at 447. His pH was normal at 7.36. 12/05/19 08:14 I have ordered insulin R 10 units. 12/05/19 08:53 His ketones were 1.7. I will discharge him home. I am not sure why his blood sugars have gone up. Departure - Departure Time of Disposition: 09:00 Disposition: Home, Self-Care 01 Condition: Good Clinical Impression: Hyperglycemia - Discharge Information *PRESCRIPTION DRUG MONITORING PROGRAM REVIEWED*: Not Applicable *COPY OF PRESCRIPTION DRUG MONITORING REPORT IN PATIENT MANDIE: Not Applicable Referrals: Panda Bright MD [Primary Care Provider] - 1 Week Forms: ED Department Discharge Additional Instructions: Drink plenty of fluids. Please return if you are worse. Sepsis Event Note - Evaluation Sepsis Screening Result: No Definite Risk - Focused Exam Vital Signs: Vital Signs Temp Pulse Resp BP Pulse Ox 12/05/19 06:38 97.5 F 92 16 154/64 H 97 Date Exam was Performed: 12/05/19 Time Exam was Performed: 08:53
[2019-12-05] MEDS ORDERED: Insulin Regular, Human 100 Units/ML 3 ML Vial SUBCUT ONE (08:13)
== END 2019-12-05 09:03 | disposition home or self-care (01) ==
LOC: JD.ED 06:30
DX: E10.65 Type 1 diabetes mellitus with hyperglycemia (principal); E87.1 Hypo-osmolality and hyponatremia; E78.00 Pure hypercholesterolemia, unspecified; R01.1 Cardiac murmur, unspecified; Z79.4 Long term (current) use of insulin; Z88.6 Allergy status to analgesic agent; Z91.041 Radiographic dye allergy status
CPT/HCPCS: 36415; 36600; 80053; 82009; 82803; 83930; 85025; 99283; J1815; 99284

== ENCOUNTER 2020-03-28 11:38 | Emergency (ER) | payer BC ==
[2020-03-28 11:47] VITALS: BP 153/69; PULSE 77
[2020-03-28] MEDS ORDERED: Metoclopramide 10 MG/2 ML SDV IVPUSH STA (12:09)
[2020-03-28] MEDS ORDERED: Ondansetron 4 MG/2 ML SDV IVPUSH ONE (12:09)
[2020-03-28] MEDS ORDERED: Sodium Chloride 0.9% 1,000 ML IV SCH (12:15)
--- NOTE | 2020-03-28 12:15 | EDM.PDOC ---
ED HPI GENERAL MEDICAL PROBLEM - General Chief Complaint: General Stated Complaint: [facility] Time Seen by Provider: 03/28/20 11:48 Source of Information: Reports: Patient History Limitations: Reports: Other (Reluctant to answer questions) - History of Present Illness INITIAL COMMENTS - FREE TEXT/NARRATIVE: Mr. Lee is a pleasant 59-year-old man with a past medical history significant for type 1 diabetes, a neurogenic bladder requiring self- catheterization, and a bicuspid aortic valve, who is now brought to the ED by EMS after he developed vertigo when he bent over at work morning. His symptoms are made worse with virtually any movement. He has associated nausea and vomiting. EMS found his blood glucose to be 147 in the field. He was given IV Zofran en route to the ED. The patient states that he has had similar symptoms 4 or 5 times, most recently about a year ago, of unknown cause. He states that his blood glucoses have been within normal range recently. He denies recent fever, chills, sore throat, ear pain, nasal or sinus congestion, cough, dyspnea, chest pain, palpitations, nausea, vomiting, constipation, diarrhea, abdominal pain, urinary symptoms, recent weight gain or weight loss, recent bloody bowel movements or black bowel movements, recent joint aches, headaches, or rashes. Here in the ED, the patient's initial BP is found to be elevated at 153/69, however, he is otherwise hemodynamically stable, afebrile, saturating 100% on room air. The patient's PCP is Dr. Panda Bright. His Community Youth Secretary is Dr. Chente Wang. - Related Data Allergies Allergy/AdvReac Type Severity Reaction Status Date / Time acetaminophen [From Tylenol] Allergy Severe Other Verified 03/28/20 11:47 Iodinated Contrast Media Allergy Severe Hives Verified 03/28/20 11:47 [Iodinated Contrast- Oral and IV Dye] Home Meds: Home Meds Ascorbic Acid [Vitamin C] 500 mg PO DAILY 03/04/14 [History] Aspirin [[place] Aspirin] 81 mg PO DAILY 03/04/14 [History] Doxazosin [Doxazosin Mesylate] 8 mg PO BEDTIME 03/04/14 [History] Multivitamin [Multivitamins] 1 each PO DAILY 03/04/14 [History] Multivitamins/Min/FA/Lut/Zeax [ICaps MV] 1 each PO DAILY 03/04/14 [History] Cranberry 500 mg PO DAILY 10/27/15 [History] Meloxicam 15 mg PO DAILY 10/27/15 [History] Calcium/Magnesium/Vit D3 [Calcium 500 MG] 1 tab PO DAILY 03/06/16 [History] Fish Oil/DHA/EPA [Fish Oil 1,200 MG] 1 cap PO DAILY 03/06/16 [History] Albuterol [Proventil HFA] 2 puff INH Q4H PRN 01/06/18 [History] Benzonatate 200 mg PO 01/06/18 [History] Insulin Aspart (Niacinamide) [Fiasp Penfill 100 Unit/ml Cart] 0 unit SQ DAILY [History] Rosuvastatin [Crestor] 8 mg PO DAILY 10/12/19 [History] Meclizine [Antivert] 1 tab PO Q6H PRN #10 tab 03/28/20 [Rx] Ondansetron [Zofran ODT] 1 tab PO Q8H PRN #10 tab.dis 03/28/20 [Rx] Past Medical History HEENT History: Reports: Impaired Vision Other HEENT History: wears glasses Cardiovascular History: Reports: High Cholesterol, Other (See Below) (Bicuspid aortic valve) Gastrointestinal History: Reports: Cholelithiasis, Other (See Below) (Fructose malabsorption) Genitourinary History: Reports: Neurogenic Bladder (self caths) Endocrine/Metabolic History: Reports: Diabetes, Type I - Past Surgical History GI Surgical History: Reports: Cholecystectomy (around 2006), Colonoscopy (x 1 or 2), EGD (x 1 or 2) Male Surgical History: Reports: Vasectomy, Other (See Below) (Cystoscopy x 2 or 3) Musculoskeletal Surgical History: Reports: Shoulder Surgery (right, arthroscopic ) Social & Family History - Tobacco Use Smoking Status *Q: Former Smoker Years of Tobacco use: 33 Packs/Tins Daily: 1 Month/Year Tobacco Last Used: Quit 2009 - Caffeine Use Caffeine Use: Reports: Coffee - Alcohol Use Alcohol Use History: Yes Alcohol Use Frequency: Rarely - Recreational Drug Use Recreational Drug Use: No - Living Situation & Occupation Living situation: Reports: , with Spouse 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 ED EXAM, GENERAL - Physical Exam Exam: See Below Exam Limited By: No Limitations General Appearance: Alert, WD/WN, Mild Distress (dry heaving with virtually any movement, including movement of the gurney) Eye Exam: Bilateral Eye: EOMI, Normal Inspection Ears: Normal External Exam, Normal Canal, Hearing Grossly Normal, Normal TMs Nose: Normal Inspection Throat/Mouth: Normal Inspection, Normal Lips, Normal Voice, No Airway Compromise Head: Atraumatic, Normocephalic Neck: Normal Inspection, Full Range of Motion Respiratory/Chest: No Respiratory Distress, Lungs Clear, Normal Breath Sounds, No Accessory Muscle Use Cardiovascular: Normal Peripheral Pulses, Regular Rate, Rhythm, No Edema, No Gallop, No JVD, No Rub, Systolic Murmur (Flow murmur heard at the apex, but heard best at the right upper sternal border) Peripheral Pulses: 4+: Radial (L), Radial (R) GI/Abdominal: Normal Bowel Sounds, Soft, Non-Tender, No Organomegaly, No Distention, No Abnormal Bruit, No Mass (Male) Exam: Deferred Rectal (Males) Exam: Deferred Back Exam: Normal Inspection, Full Range of Motion, NT Extremities: Normal Inspection, Normal Range of Motion, No Pedal Edema, Normal Capillary Refill Neurological: Alert, Oriented, CN II-XII Intact, Normal Cognition, No Motor/ Sensory Deficits Psychiatric: Flat Affect Skin Exam: Warm, Dry, Intact, Normal Color, No Rash EKG INTERPRETATION EKG Date: 03/28/20 Time: 11:41 Rhythm: NSR Rate (Beats/Min): 69 [place]: Normal P-Wave: Present (1st deg AVB) QRS: Normal (Late transition) ST-T: Normal QT: Normal Comparison: No Change (01/06/2018) Course - Vital Signs Last Recorded V/S: Last Vital Signs Temp 36.7 C 03/28/20 11:39 Pulse 77 03/28/20 11:39 Resp 21 H 03/28/20 11:39 BP 153/69 H 03/28/20 11:39 Pulse Ox 100 03/28/20 11:39 - Orders/Labs/Meds Labs: Laboratory Tests 03/28/20 03/28/20 03/28/20 Range/Units 11:50 11:50 11:50 WBC 6.40 (4.23-9.07) K/mm3 RBC 4.66 (4.63-6.08) M/mm3 Hgb 13.7 (13.7-17.5) gm/dl Hct 40.4 (40.1-51.0) % MCV 86.7 (79.0-92.2) fl MCH 29.4 (25.7-32.2) pg MCHC 33.9 (32.2-35.5) g/dl RDW Std Deviation 40.9 (35.1-43.9) fL Plt Count 230 (163-337) K/mm3 MPV 10.1 (9.4-12.3) fl Neutrophils % (Manual) 51 (40-60) % Band Neutrophils % 0 (0-10) % Lymphocytes % (Manual) 39 (20-40) % Atypical Lymphs % 0 % Monocytes % (Manual) 8 (2-10) % Eosinophils % (Manual) 1 (0.8-7.0) % Basophils % (Manual) 1 (0.2-1.2) Platelet Estimate Adequate RBC Morph Comment Normal D-Dimer, Quantitative 0.39 (0.19-0.50) mg/L Sodium 140 (136-145) mEq/L Potassium 3.5 (3.5-5.1) mEq/L Chloride 104 (98-107) mEq/L Carbon Dioxide 19 L (21-32) mEq/L Anion Gap 20.5 H (5-15) BUN 19 H (7-18) mg/dL Creatinine 1.2 (0.7-1.3) mg/dL Est Cr Clr Drug Dosing 67.92 mL/min Estimated GFR (MDRD) > 60 (>60) mL/min BUN/Creatinine Ratio 15.8 (14-18) Glucose 150 H (74-106) mg/dL Calcium 9.2 (8.5-10.1) mg/dL Magnesium 1.7 L (1.8-2.4) mg/dl Total Bilirubin 0.6 (0.2-1.0) mg/dL AST 21 (15-37) U/L ALT 25 (16-63) U/L Alkaline Phosphatase 47 (46-116) U/L Troponin I < 0.017 (0.00-0.056) ng/mL Total Protein 7.3 (6.4-8.2) g/dl Albumin 4.2 (3.4-5.0) g/dl Globulin 3.1 gm/dL Albumin/Globulin Ratio 1.4 (1-2) Meds: Medications Discontinued Medications Generic Name Dose Route Start Last Admin Trade Name Yan PRN Reason Stop Dose Admin Sodium Chloride 1,000 mls @ 150 mls/hr 03/28/20 12:15 03/28/20 12:18 Normal Saline IV 150 mls/hr ASDIRECTED NASREEN Administration Metoclopramide HCl 10 mg 03/28/20 12:09 03/28/20 12:18 Reglan IVPUSH 03/28/20 12:10 10 mg ONETIME STA Administration Ondansetron HCl 4 mg 03/28/20 12:09 03/28/20 12:16 Zofran IVPUSH 03/28/20 12:10 4 mg ONETIME ONE Administration - Re-Assessments/Exams Free Text/Narrative Re-Assessment/Exam: 03/28/20 12:11 As above, the patient presents with positional vertigo with nausea and vomiting. At present, he is too ill to obtain a meaningful [place]-Hallpike evaluation; he is reluctant to even cooperate with the neurologic examination. I will attempt to perform Reese-Hallpike maneuver if we can get his nausea and vomiting under control -I have ordered IV Reglan, IV Zofran, and IV fluid. I have ordered a work-up that includes blood work, a CT of his head without contrast, and an ECG. 03/28/20 14:16 CT of the head without contrast as read by Dr. Barrett as: 1. Nothing acute is identified on noncontrast head CT exam. 2. No significant change from previous study is seen. The patient's CBC is unremarkable. His CMP is remarkable for a bicarbonate decreased at 19 with an anion gap increased at 20.5. His BUN is elevated at 19 with a Cr normal at 1.2. His blood glucose is elevated at 150, with the remainder of his CMP being unremarkable. His magnesium level is slightly decreased at 1.7. His troponin is undetectably low. His D-dimer is within normal limits at 0.39. 03/28/20 14:59 I reevaluated the patient. He states that he is feeling entirely back to normal. I performed the Reese-Hallpike maneuver on him bilaterally, with no induction of nystagmus or vertigo. I will therefore discharge the patient home with prescriptions for both meclizine and Zofran, along with a referral to ENT, should his symptoms return. Departure - Departure Time of Disposition: 15:00 Disposition: Home, Self-Care 01 Condition: Good Clinical Impression: BPPV (benign paroxysmal positional vertigo), First degree AV block - Discharge Information *PRESCRIPTION DRUG MONITORING PROGRAM REVIEWED*: Not Applicable *COPY OF PRESCRIPTION DRUG MONITORING REPORT IN PATIENT MANDIE: Not Applicable Prescriptions: Meclizine [Antivert] 1 tab PO Q6H PRN #10 tab PRN Reason: Dizziness Ondansetron [Zofran ODT] 1 tab PO Q8H PRN #10 tab.dis PRN Reason: Nausea/Vomiting Instructions: Vertigo, [id number] Referrals: Panda Bright MD [Primary Care Provider] - Chente Wang MD [Ordering Only Provider] - Jonathan Waddell MD [Ordering Only Provider] - Forms: ED Department Discharge Additional Instructions: You were seen in the emergency room after developing vertigo (the sensation of the room spinning), along with nausea and vomiting. Work-up in the ER included blood work, a CT scan of your head, and an ECG. Your entire work-up was unremarkable. You have not suffered a stroke. You are not anemic. You are not dehydrated. Based on your history, physical exam, and ER tests, your symptoms were most likely due to benign paroxysmal positional vertigo (BPPV). Prescriptions for the anti-dizziness medicine meclizine and the anti-nausea medicine Zofran have been sent to the [facility], located in the [employer]. You may take 1 tablet of meclizine every 6 hours, as needed for dizziness. If you take meclizine, do not drive or operate heavy machinery for 1 hours afterwards. You may dissolve 1 tablet of Zofran on your tongue up to every 8 hours, as needed for nausea/vomiting. If your dizziness symptoms return, please follow-up with the ENT Dr. Jonathan Waddell , in [place], for further evaluation and treatment. If any other problems, please do not hesitate to return to the ER. Sepsis Event Note - Evaluation Sepsis Screening Result: No Definite Risk - Focused Exam Date Exam was Performed: 03/31/20 Time Exam was Performed: 11:16
--- NOTE | 2020-03-28 13:40 | CT ---
Head CT Technique: Multiple axial sections through the brain were obtained. Intravenous contrast was not utilized. Comparison: Previous head CT study of 01/06/18. Findings: Ventricles along with basal cisterns and sulci over the convexities are within normal limits for the patient's age. No abnormal parenchymal densities are seen. No evidence of intracranial hemorrhage. No midline shift or mass-effect is seen. Visualized mastoid sinuses and visualized paranasal sinuses show nothing acute. No acute calvarial abnormality is appreciated. Impression: 1. Nothing acute is identified on noncontrast head CT exam. 2. No significant change from previous study is seen. Diagnostic code #1 This report was dictated in MDT
== END 2020-03-28 16:00 | disposition home or self-care (01) ==
LOC: JD.ED 11:38 → SUPCPDRO 11:38 → JD.ED 16:00
DX: H81.10 Benign paroxysmal vertigo, unspecified ear (principal); I44.0 Atrioventricular block, first degree; E10.9 Type 1 diabetes mellitus without complications; Z88.6 Allergy status to analgesic agent; Z91.040 Latex allergy status; E78.00 Pure hypercholesterolemia, unspecified; Z87.891 Personal history of nicotine dependence; Z79.82 Long term (current) use of aspirin
CPT/HCPCS: 36415; 70450; 80053; 83735; 84484; 85007; 85027; 85379; 93005; 96361; 96374; 96375; 99285; J2405; J2765; J7030

== ENCOUNTER 2020-07-26 07:48 | Emergency (ER) | payer BC ==
[2020-07-26 08:10] VITALS: BP 145/95; PULSE 51
--- NOTE | 2020-07-26 08:30 | EDM.PDOC ---
ED HPI GENERAL MEDICAL PROBLEM - General Chief Complaint: Chest Pain Stated Complaint: DIZZY/FEELING FAINT/CHEST PAIN Time Seen by Provider: 07/26/20 08:00 - History of Present Illness INITIAL COMMENTS - FREE TEXT/NARRATIVE: 60-year-old male presents the emergency room with near syncopal reaction and chest pain. Patient had an episode where he became very lightheaded his vision was blurry. Patient has a history of type 1 diabetes sounds like late diagnosis. He just received an insulin bolus prior to this. However when he checked his blood sugars it was in the 170s. Patient is a remarkable history for having a aortic valve replacement on June 12. He had a bicuspid aortic valve and was developing severe aortic stenosis. He is not on blood thinners at this point he had a bovine valve placed. Patient has not had any breathing difficulties or shortness of breath. The pain started out in the mid upper abdomen and radiated to the mid left chest. The pain is not severe. He describes it more as a minimal discomfort just above the left nipple it is not worsened with deep breathing. The patient takes a daily aspirin and he is certain it is not a baby aspirin so I think it is a regular aspirin. Left Upper Chest Pain Score (Numeric/FACES): 8 - Related Data Allergies Allergy/AdvReac Type Severity Reaction Status Date / Time acetaminophen [From Tylenol] Allergy Severe Other Verified 07/26/20 08:09 Iodinated Contrast Media Allergy Severe Hives Verified 07/26/20 08:09 [Iodinated Contrast- Oral and IV Dye] Home Meds: Home Meds Ascorbic Acid [Vitamin C] 500 mg PO DAILY 03/04/14 [History] Aspirin [[place] Aspirin] 81 mg PO DAILY 03/04/14 [History] Multivitamin [Multivitamins] 1 each PO DAILY 03/04/14 [History] Multivitamins/Min/FA/Lut/Zeax [ICaps MV] 1 each PO DAILY 03/04/14 [History] Fish Oil/DHA/EPA [Fish Oil 1,200 MG] 1 cap PO DAILY 03/06/16 [History] Albuterol [Proventil HFA] 2 puff INH Q4H PRN 01/06/18 [History] Insulin Aspart (Niacinamide) [Fiasp Penfill 100 Unit/ml Cart] 0 unit SQ DAILY 10/12/19 [History] Rosuvastatin [Crestor] 10 mg PO DAILY 10/12/19 [History] Amiodarone [Cordarone] 200 mg PO DAILY 07/26/20 [History] Famotidine 20 mg PO BID 07/26/20 [History] Metoprolol Tartrate 50 mg PO BID 07/26/20 [History] predniSONE [Prednisone] 10 mg PO 07/26/20 [History] traMADol [Ultram] 50 mg PO Q6H PRN 07/26/20 [History] Past Medical History HEENT History: Reports: Impaired Vision Other HEENT History: wears glasses Cardiovascular History: Reports: High Cholesterol, Other (See Below) Other Cardiovascular History: "Bicuspid aortic valve that flows both ways." Respiratory History: Reports: None Gastrointestinal History: Reports: Cholelithiasis, Other (See Below) Other Gastrointestinal History: gallstones. 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 Fructose Malabsorption. Genitourinary History: Reports: Neurogenic Bladder Other Genitourinary History: dysuria, UTI, cystitis, renal stricture. Pt self caths. Other Musculoskeletal History: arthirits joint pain Neurological History: Reports: None Psychiatric History: Reports: None Endocrine/Metabolic History: Reports: Diabetes, Type I Other Endocrine/Metabolic History: on insulin pump, continuous glucose monitor Hematologic History: Reports: None Immunologic History: Reports: None Oncologic (Cancer) History: Reports: None Dermatologic History: Reports: None - Infectious Disease History Infectious Disease History: Reports: None - Past Surgical History GI Surgical History: Reports: Cholecystectomy, Colonoscopy, EGD Male Surgical History: Reports: Vasectomy, Other (See Below) Musculoskeletal Surgical History: Reports: Shoulder Surgery Social & Family History - Tobacco Use Smoking Status *Q: Never Smoker - Caffeine Use Caffeine Use: Reports: Coffee - Recreational Drug Use Recreational Drug Use: No - Living Situation & Occupation Living situation: Reports: , with Spouse 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 Denies: Dyspnea on Exertion GI/Abdominal: Reports: No Symptoms : Reports: No Symptoms Musculoskeletal: Reports: No Symptoms Neurological: Reports: No Symptoms ED EXAM, GENERAL - Physical Exam Exam: See Below Exam Limited By: No Limitations General Appearance: Alert, No Apparent Distress Head: Atraumatic, Normocephalic Neck: Normal Inspection, Supple, Non-Tender, Full Range of Motion Respiratory/Chest: No Respiratory Distress, Lungs Clear, Normal Breath Sounds Cardiovascular: Regular Rate, Rhythm, No Edema, Systolic Murmur (2/6 holos ystolic murmur), Other (Recent thoracotomy scar appears to be healing well) GI/Abdominal: Normal Bowel Sounds, Soft, Non-Tender, Other (Drain sites from recent chest surgery appear to be healing well.) Back Exam: Normal Inspection. No: CVA Tenderness (L), CVA Tenderness (R) Neurological: Alert, Oriented, Normal Cognition Psychiatric: Normal Affect, Normal Mood Skin Exam: Warm, Dry, Intact Course - Vital Signs Last Recorded V/S: Last Vital Signs Temp 36.7 C 07/26/20 08:00 Pulse 51 L 07/26/20 08:00 Resp 16 07/26/20 08:00 BP 145/95 H 07/26/20 08:00 Pulse Ox 99 07/26/20 08:00 - Orders/Labs/Meds Orders: Active Orders 24 hr Category Date Time Status EKG Documentation Completion [RC] ASDIRECTED Care 07/26/20 08:10 Active EKG 12 Lead [EK] Stat Ther 07/26/20 08:09 Ordered Labs: Laboratory Tests 07/26/20 07/26/20 07/26/20 Range/Units 08:03 08:03 08:03 WBC 6.47 (4.23-9.07) K/mm3 RBC 4.55 L (4.63-6.08) M/mm3 Hgb 13.4 L (13.7-17.5) gm/dl Hct 40.9 (40.1-51.0) % MCV 89.9 D (79.0-92.2) fl MCH 29.5 (25.7-32.2) pg MCHC 32.8 (32.2-35.5) g/dl RDW Std Deviation 43.9 (35.1-43.9) fL Plt Count 262 (163-337) K/mm3 MPV 9.6 (9.4-12.3) fl Neut % (Auto) 57.8 (34.0-67.9) % Lymph % (Auto) 29.1 (21.8-53.1) % [place] % (Auto) 9.0 (5.3-12.2) % Eos % (Auto) 3.1 (0.8-7.0) Baso % (Auto) 0.8 (0.1-1.2) % Neut # (Auto) 3.75 (1.78-5.38) K/mm3 Lymph # (Auto) 1.88 (1.32-3.57) K/mm3 [place] # (Auto) 0.58 (0.30-0.82) K/mm3 Eos # (Auto) 0.20 (0.04-0.54) K/mm3 Baso # (Auto) 0.05 (0.01-0.08) K/mm3 D-Dimer, Quantitative 1.45 H (0.19-0.50) mg/L Sodium 139 (136-145) mEq/L Potassium 4.2 (3.5-5.1) mEq/L Chloride 104 (98-107) mEq/L Carbon Dioxide 26 (21-32) mEq/L Anion Gap 13.2 (5-15) BUN 26 H (7-18) mg/dL Creatinine 1.3 (0.7-1.3) mg/dL Est Cr Clr Drug Dosing 57.91 mL/min Estimated GFR (MDRD) 57 (>60) mL/min BUN/Creatinine Ratio 20.0 H (14-18) Glucose 147 H (74-106) mg/dL Calcium 9.0 (8.5-10.1) mg/dL Total Bilirubin 0.2 (0.2-1.0) mg/dL AST 25 (15-37) U/L ALT 35 (16-63) U/L Alkaline Phosphatase 80 (46-116) U/L Troponin I < 0.017 (0.00-0.056) ng/mL Total Protein 7.7 (6.4-8.2) g/dl Albumin 3.7 (3.4-5.0) g/dl Globulin 4.0 gm/dL Albumin/Globulin Ratio 0.9 L (1-2) Meds: Medications Discontinued Medications Generic Name Dose Route Start Last Admin Trade Name Freq PRN Reason Stop Dose Admin Sodium Chloride 500 mls @ 999 mls/hr 07/26/20 09:11 Normal Saline IV 08/28/20 09:41 .BOLUS ONE - Re-Assessments/Exams Free Text/Narrative Re-Assessment/Exam: 07/26/20 09:55 Patient has done much better here in the emergency department his pain gradually did go away his troponin is normal his d-dimer is elevated most likely due to his surgery at 1.5. I did discuss patient's case with Dr. Rolle, his vascular surgeon who agrees the d-dimer is probably related to the surgery Dr. Rolle also states that the patient's coronaries are very clean. And given the fact that his pain is completely resolved on its own is highly unlikely this represents a pulmonary embolism. The patient has follow-up with the vascular clinic on Wednesday and will follow up with them then. Departure - Departure Time of Disposition: : Disposition: Home, Self-Care 01 Clinical Impression: Atypical chest pain Referrals: Panda Bright MD [Primary Care Provider] - Forms: ED Department Discharge Additional Instructions: Return to the emergency room with any questions problems or worsening symptoms. Follow-up in the vascular clinic as scheduled on Wednesday. Continue your routine medications. Sepsis Event Note (ED) - Evaluation Sepsis Screening Result: No Definite Risk - Focused Exam Vital Signs: Vital Signs Temp Pulse Resp BP Pulse Ox 07/26/20 08:00 36.7 C 51 L 16 145/95 H 99 - My Orders Last 24 Hours: My Active Orders 07/26/20 08:09 EKG 12 Lead [EK] Stat 07/26/20 08:10 EKG Documentation Completion [RC] ASDIRECTED - Assessment/Plan Last 24 Hours: My Active Orders 07/26/20 08:09 EKG 12 Lead [EK] Stat 07/26/20 08:10 EKG Documentation Completion [RC] ASDIRECTED
--- NOTE | 2020-07-26 08:45 | CR ---
Chest: Portable view of the chest was obtained. Comparison: Prior chest x-ray of 01/06/18. Heart size and mediastinum are within normal limits for portable technique. Lungs are clear with no acute parenchymal change. Prior sternotomy is noted. Old healed left clavicle fracture is noted. Impression: 1. Findings as noted above. 2. Nothing acute is appreciated. Diagnostic code #2 This report was dictated in MDT
[2020-07-26] MEDS ORDERED: Sodium Chloride 0.9% 500 ML IV ONE (09:11)
== END 2020-07-26 10:27 | disposition home or self-care (01) ==
LOC: JD.ED 07:48
DX: R07.89 Other chest pain (principal); E78.00 Pure hypercholesterolemia, unspecified; E10.9 Type 1 diabetes mellitus without complications; M19.90 Unspecified osteoarthritis, unspecified site; Z88.6 Allergy status to analgesic agent; Z91.041 Radiographic dye allergy status; Z79.82 Long term (current) use of aspirin; Z79.899 Other long term (current) drug therapy; Z90.49 Acquired absence of other specified parts of digestive tract
CPT/HCPCS: 36415; 71045; 71045-26; 80053; 84484; 85025; 85379; 93005; 99283; 99285-25

== ENCOUNTER 2021-07-24 14:13 | Emergency (ER) | payer BC ==
--- NOTE | 2021-07-24 14:51 | EDM.PDOC ---
ED HPI GENERAL MEDICAL PROBLEM - General Chief Complaint: Syncope Stated Complaint: NAUSEA, DIZZY, LEGS NUMB,SHAKY Time Seen by Provider: 07/24/21 14:50 Source of Information: Reports: Patient History Limitations: Reports: No Limitations - History of Present Illness INITIAL COMMENTS - FREE TEXT/NARRATIVE: 61-year-old male presents to the ED in accompaniement of his . Apparently she drove him to the hospital. He was at work and coworkers were nearby. He developed sudden onset of severe headache and nausea and dropped down to his knees. He does not think he actually lost consciousness. He denies hitting the floor his head on the floor. He yelled 3 times for help and coworkers came to his aid. He did not check his blood sugar on scene. Blood sugar tested after the fact was 76. Subsequently he has developed persistent nausea with recurrent dry heaves and vomiting initially. Emesis contained bilious material no blood. He developed a severe generalized headache particularly the base of his skull. He prefers to lie perfectly still with his eyes closed even then the room is still spinning and he has constant nausea. He does have a history of paroxysmal vertigo. No history of migraines. Patient and his have both received the COVID-19 vaccinations. Onset: Today, Sudden Onset Date: 07/24/21 Onset Time: 14:00 Duration: Minutes: Location: Reports: Head (Severe generalized headache worse at the base of his skull.), Generalized Quality: Reports: Ache, Throbbing, Other Severity: Severe (Pulsating headache.) Improves with: Reports: None Worsens with: Reports: Movement (Any movement of his head or neck precipitate nausea and vomiting) Context: Reports: Other (Spontaneous occurrence while at work this afternoon.). Denies: Activity, Exercise, Lifting, Sick Contact, Trauma Associated Symptoms: Reports: Headaches, Weakness. Denies: Confusion, Chest Pain, Cough, cough w sputum, Diaphoresis (Rare headache.), Fever/Chills, Loss of Appetite, Malaise, Nausea/Vomiting, Rash, Seizure, Shortness of Breath, Syncope Treatments DIRECTOR INSTRUCTIONAL MATERIAL: Reports: Other (see below) (None.) - Related Data Allergies Allergy/AdvReac Type Severity Reaction Status Date / Time Iodinated Contrast Media Allergy Intermediate Hives Verified 07/24/21 15:15 [Iodinated Contrast- Oral and IV Dye] acetaminophen [From Tylenol] Allergy Unknown Other Verified 07/24/21 15:15 Home Meds: Home Meds Ascorbic Acid [Vitamin C] 500 mg PO DAILY 03/04/14 [History] Aspirin [[place] Aspirin] 324 mg PO DAILY 03/04/14 [History] Multivitamin [Multivitamins] 1 each PO DAILY 03/04/14 [History] Multivitamins/Min/FA/Lut/Zeax [ICaps MV] 1 each PO DAILY 03/04/14 [History] Fish Oil/DHA/EPA [Fish Oil 1,200 MG] 1 cap PO DAILY 03/06/16 [History] Insulin Aspart (Niacinamide) [Fiasp Penfill 100 Unit/ml Cart] 0 unit SQ DAILY 1 12/12/18 [History] Rosuvastatin [Crestor] 10 mg PO DAILY 10/12/19 [History] Calcium Carbonate [Calcium] 1,000 mg PO DAILY 07/24/21 [History] L Acidophil/B Lactis/B Longum [Florajen Digest 15 B Cell Cap] 1 each PO DAILY 07/24/21 [History] Lutein/Minerals/Vit A,C & E [Ocuvite] 1 tab PO DAILY 07/24/21 [History] Meclizine [Antivert] 12.5 mg PO TID #15 tab 07/24/21 [Rx] Ubidecarenone [Co Q-10] 100 mg PO DAILY 07/24/21 [History] Past Medical History HEENT History: Reports: Impaired Vision Other HEENT History: wears glasses Cardiovascular History: Reports: CAD, High Cholesterol, Hypertension, Other (See Below) Other Cardiovascular History: Patient underwent replacement of his aortic valve in May 2020. It is a bioprosthetic valve and he is no longer on anticoagulants. Respiratory History: Reports: None Gastrointestinal History: Reports: Cholelithiasis, Other (See Below) Other Gastrointestinal History: gallstones. 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 Fructose Malabsorption. Genitourinary History: Reports: Neurogenic Bladder Other Genitourinary History: dysuria, UTI, cystitis, renal stricture. Pt self caths. Other Musculoskeletal History: arthirits joint pain Neurological History: Reports: None Psychiatric History: Reports: None Endocrine/Metabolic History: Reports: Diabetes, Type I Other Endocrine/Metabolic History: on insulin pump, continuous glucose monitor Hematologic History: Reports: None Immunologic History: Reports: None Oncologic (Cancer) History: Reports: None Dermatologic History: Reports: None - Infectious Disease History Infectious Disease History: Reports: None - Past Surgical History Cardiovascular Surgical History: Reports: Other (See Below) Other Cardiovascular Surgeries/Procedures: aortic valve replacement GI Surgical History: Reports: Cholecystectomy, Colonoscopy, EGD Male Surgical History: Reports: Vasectomy, Other (See Below) Other Male Surgeries/Procedures: Cystoscopy Musculoskeletal Surgical History: Reports: Shoulder Surgery Other Musculoskeletal Surgeries/Procedures:: Right Shoulder Surgery Social & Family History - Tobacco Use Tobacco Use Status *Q: Former Tobacco User Used Tobacco, but Quit: Yes Month/Year Tobacco Last Used: 1999 - Caffeine Use Caffeine Use: Reports: Coffee Caffeine Use Comment: 2 cups per day - Alcohol Use Days Per Week of Alcohol Use: 1 Number of Drinks Per Day: 0 Total Drinks Per Week: 0 - Recreational Drug Use Recreational Drug Use: No - Living Situation & Occupation Living situation: Reports: , with Spouse 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 Denies: Fever, Chills, Malaise, Weakness, Decreased Appetite, Weight Loss HEENT: Reports: Glasses Respiratory: Denies: Shortness of Breath, Wheezing, Pleuritic Chest Pain, Cough, Sputum Cardiovascular: Reports: Blood Pressure Problem. Denies: Chest Pain, Claudication, Dyspnea on Exertion, Edema, Lightheadedness, Orthopnea Endocrine: Reports: Fatigue, Other (Type II diabetic using insulin for control) GI/Abdominal: Reports: No Symptoms : Reports: Frequency, Other (Nocturia x2) Musculoskeletal: Reports: Back Pain, Joint Pain (Kegel problems with back pain occasional problems of shoulder neck pain and knees.) Skin: Reports: Bruising (Bruises from sites of insulin injections.) Neurological: Reports: Other (History of intermittent paroxysmal) Psychiatric: Reports: No Symptoms ( benign positional vertigo) Hematologic/Lymphatic: Reports: No Symptoms Immunologic: Reports: No Symptoms - Physical Exam Exam: See Below Exam Limited By: Physical Impairment (She prefers to lay very still keep his eyes closed but answers all questions appropriately.) General Appearance: Alert, Moderate Distress, Other (In moderate to severe distress. Vital signs show temperature of 36.1. Heart rate 76 and sinus. Respir atory to 16 with O2 sats of 99% room air. BP 160/90. Patient lies still at approximately 35 degrees head up with his eyes closed and he still feels the room is spinning.) Eye Exam: Bilateral Eye: Normal Inspection (No blepharal pallor or scleral icterus.), Nystagmus (Mild sustained nystagmus on right lateral gaze), PERRL (No gaze palsy) Ears: Normal TMs Throat/Mouth: Normal Inspection, Normal Lips, Normal Oropharynx, Other (Uvula is in the midline) Head Exam: Atraumatic, Normocephalic Neck: Normal Inspection. No: Carotid Bruit, Lymphadenopathy (L), Lymphadenopathy (R) Respiratory/Chest: No Respiratory Distress, Lungs Clear, Normal Breath Sounds, No Accessory Muscle Use Cardiovascular: Normal Peripheral Pulses, Regular Rate, Rhythm, No Edema, No Gallop, No Murmur, No Rub, Systolic Murmur (Rate 1 out of 6 systolic ejection murmur best heard left lower sternal border compared with aortic stenosis and I believe mild aortic insufficiency as well.), Other (Well-healed midline sternotomy incision.) GI/Abdominal: Normal Bowel Sounds, Soft, Non-Tender, No Organomegaly, No Distention, Pelvis Stable Neuro Exam (Abbreviated): Alert, Oriented, CN II-XII Intact, Normal Cognition, Other (The patient was able to do index [id number] evaluation normally.). No: Normal Gait (Not able to assess) DTR: 1+: Achilles (R), Achilles (L), 2+: Bicep (R), Bicep (L), Patella (R), Patella (L) Extremities: Normal Inspection, Normal Range of Motion, Non-Tender, No Pedal Edema Psychiatric: Other Skin Exam: Warm, Dry (Peers acutely ill.), Intact, Normal Color, No Rash #1 Interpretation EKG Date: 07/24/21 Time: 14:36 Rhythm: NSR Rate (Beats/Min): 66 [place]: LAD-Left [place] Deviation (Minimal left axis deviation of -2 degrees) P-Wave: Present (First-degree AV block left atrial hypertrophy) QRS: Other (Q waves in lead V1 V2 and near Q-wave V3 compared with old anteroseptal myocardial infarction.) ST-T: Other (Nonspecific T wave flattening aVL) EKG Interpretation Comments: Abnormal ECG Course - Vital Signs Last Recorded V/S: Last Vital Signs Temp 36.1 C 07/24/21 14:22 Pulse 74 07/24/21 15:26 Resp 16 07/24/21 15:26 BP 148/77 H 07/24/21 15:26 Pulse Ox 76 L 07/24/21 15:26 - Orders/Labs/Meds Labs: Laboratory Tests 07/24/21 07/24/21 07/24/21 Range/Units 14:30 14:30 14:30 WBC 8.02 (4.23-9.07) K/mm3 RBC 4.93 (4.63-6.08) M/mm3 Hgb 14.5 (13.7-17.5) gm/dl Hct 42.7 (40.1-51.0) % MCV 86.6 D (79.0-92.2) fl MCH 29.4 (25.7-32.2) pg MCHC 34.0 (32.2-35.5) g/dl RDW Std Deviation 41.9 (35.1-43.9) fL Plt Count 221 (163-337) K/mm3 MPV 10.2 (9.4-12.3) fl Neut % (Auto) 63.6 (34.0-67.9) % Lymph % (Auto) 26.4 (21.8-53.1) % [place] % (Auto) 8.9 (5.3-12.2) % Eos % (Auto) 0.5 L (0.8-7.0) Baso % (Auto) 0.5 (0.1-1.2) % Neut # (Auto) 5.10 (1.78-5.38) K/mm3 Lymph # (Auto) 2.12 (1.32-3.57) K/mm3 [place] # (Auto) 0.71 (0.30-0.82) K/mm3 Eos # (Auto) 0.04 (0.04-0.54) K/mm3 Baso # (Auto) 0.04 (0.01-0.08) K/mm3 PT 10.3 (9.7-12.0) SECONDS INR 0.96 D-Dimer, Quantitative 0.51 H (0.19-0.50) mg/L Sodium 139 (136-145) mEq/L Potassium 4.1 (3.5-5.1) mEq/L Chloride 102 (98-107) mEq/L Carbon Dioxide 21 (21-32) mEq/L Anion Gap 20.1 H (5-15) BUN 27 H (7-18) mg/dL Creatinine 1.2 (0.7-1.3) mg/dL Est Cr Clr Drug Dosing 66.28 mL/min Estimated GFR (MDRD) > 60 (>60) mL/min BUN/Creatinine Ratio 22.5 H (14-18) Glucose 272 H (70-99) mg/dL POC Glucose (70-99) mg/dL Calcium 9.1 (8.5-10.1) mg/dL Magnesium 1.8 (1.8-2.4) mg/dL Total Bilirubin 0.8 (0.2-1.0) mg/dL AST 26 (15-37) U/L ALT 39 (16-63) U/L Alkaline Phosphatase 71 (46-116) U/L Troponin I < 0.017 (0.00-0.056) ng/mL C-Reactive Protein <0.2 (<1.0) mg/dL NT-Pro-B Natriuret Pep (0-125) pg/mL Total Protein 7.2 (6.4-8.2) g/dl Albumin 4.2 (3.4-5.0) g/dl Globulin 3.0 gm/dL Albumin/Globulin Ratio 1.4 (1-2) 07/24/21 07/24/21 Range/Units 14:30 14:37 WBC (4.23-9.07) K/mm3 RBC (4.63-6.08) M/mm3 Hgb (13.7-17.5) gm/dl Hct (40.1-51.0) % MCV (79.0-92.2) fl MCH (25.7-32.2) pg MCHC (32.2-35.5) g/dl RDW Std Deviation (35.1-43.9) fL Plt Count (163-337) K/mm3 MPV (9.4-12.3) fl Neut % (Auto) (34.0-67.9) % Lymph % (Auto) (21.8-53.1) % [place] % (Auto) (5.3-12.2) % Eos % (Auto) (0.8-7.0) Baso % (Auto) (0.1-1.2) % Neut # (Auto) (1.78-5.38) K/mm3 Lymph # (Auto) (1.32-3.57) K/mm3 [place] # (Auto) (0.30-0.82) K/mm3 Eos # (Auto) (0.04-0.54) K/mm3 Baso # (Auto) (0.01-0.08) K/mm3 PT (9.7-12.0) SECONDS INR D-Dimer, Quantitative (0.19-0.50) mg/L Sodium (136-145) mEq/L Potassium (3.5-5.1) mEq/L Chloride (98-107) mEq/L Carbon Dioxide (21-32) mEq/L Anion Gap (5-15) BUN (7-18) mg/dL Creatinine (0.7-1.3) mg/dL Est Cr Clr Drug Dosing mL/min Estimated GFR (MDRD) (>60) mL/min BUN/Creatinine Ratio (14-18) Glucose (70-99) mg/dL POC Glucose 260 H (70-99) mg/dL Calcium (8.5-10.1) mg/dL Magnesium (1.8-2.4) mg/dL Total Bilirubin (0.2-1.0) mg/dL AST (15-37) U/L ALT (16-63) U/L Alkaline Phosphatase (46-116) U/L Troponin I (0.00-0.056) ng/mL C-Reactive Protein (<1.0) mg/dL NT-Pro-B Natriuret Pep 77 (0-125) pg/mL Total Protein (6.4-8.2) g/dl Albumin (3.4-5.0) g/dl Globulin gm/dL Albumin/Globulin Ratio (1-2) Meds: Medications Discontinued Medications Generic Name Dose Route Start Last Admin Trade Name Freq PRN Reason Stop Dose Admin Sodium Chloride 1,000 mls @ 100 mls/hr 07/24/21 15:15 Normal Saline IV ASDIRECTED NASREEN Sodium Chloride 1,000 mls @ 100 mls/hr 07/24/21 15:11 07/24/21 15:15 Normal Saline IV 07/25/21 01:10 100 mls/hr NOW STA Administration Meclizine HCl 25 mg 07/24/21 16:42 07/24/21 16:58 Meclizine 12.5 Mg Tab PO 07/24/21 16:43 25 mg ONETIME ONE Administration Metoclopramide HCl 10 mg 07/24/21 14:55 07/24/21 14:57 Metoclopramide 10 Mg/2 Ml Sdv IVPUSH 07/24/21 14:56 10 mg ONETIME ONE Administration Metoclopramide HCl Confirm 07/24/21 14:56 07/24/21 15:09 Metoclopramide 10 Mg/2 Ml Sdv Administered 07/24/21 14:57 Not Given Dose 10 mg [facility] Interpretation Free Text/Narrative:: 61-year-old male presents to the ED with acute onset of headache and severe vertigo. He suffered a near syncopal event or went down to his knees on the floor as he was afraid he was going to fall. Symptoms came on abruptly. Headache is bad and is reported to be at the base of his skull. He prefers to lie still at 35 degrees head up position with his eyes closed in the room is still spinning. He was able to perform [id number] evaluation x1. He does have mild sustained nystagmus on right lateral gaze but this caused abrupt dry heaves. Concern is for acute cerebellar infarct or hemorrhage. He is not on any anticoagulants. He does take aspirin daily. Plan immediate CT of the head without contrast. IV will be normal saline 100 mils per hour. Given Reglan 10 mg IV. Routine labs including coags to be obtained. Initial blood pressure is elevated at 160/90. I will keep an eye on this. - Re-Assessments/Exams Free Text/Narrative Re-Assessment/Exam: 07/24/21 15:44 CT of the brain has been completed without contrast. Ventricles along with the basal cisterns and sulci over the convexities are within normal limits for the patient's age. No abnormal parenchymal densities are noted. No evidence of intracranial hemorrhage is seen. No midline shift or mass-effect is seen. Bone window settings were reviewed. Visualized mastoid sinuses and paranasal sinuses show none acute. No acute calvarial abnormalities apprec iated. 07/24/21 15:45 Labs reveal a normal white count at 8.02. Auto differential shows 63.6% neutrophils. Hemoglobin is 14.5 with hematocrit of 42.7. Platelet count is 221,000. PT is 10.3 with an INR of 0.96. D-dimer is 0.51. Sodium is 139 with a potassium of 4.1. Chloride 102 with a bicarb of 21. Anion gap is elevated at 20.1. BUN is 27 with a creatinine of 1.2 and a GFR greater than 60. Glucose is elevated at 272. Bedside glucose was 260. Calcium 9.1 with a magnesium of 1.8. Liver function is normal troponin I is less than 0.017. C- reactive protein less than 0.2. Total protein is 7.2 with an albumin fraction of 4.2. 07/24/21 15:57 Patient has markedly improved on reevaluation. He is able to open his eyes and speak normally and does not have vertigo with looking to the right or left. I was therefore able to complete a complete neurological exam on him. His ears were clear. There is no cranial nerve deficits. [id number] and [id number] evaluations were normal. Rapid alternating movements are normal as well. No pronator drift. Patient appears to have an acute severe paroxysmal benign vertigo event likely involving the left labyrinth. I am going to reevaluate him with up and walking in the [place]opez approximately 1615 hrs. was to be an hour and a quarter after receiving the Reglan IV. 07/24/21 16:27 patient did very well up and walking in the hallway and able to pivot without hardly any vertigo symptoms at all. He will therefore be discharged home. Given Antivert 25 mg now and a prescription will be written for 12.5 mg every 8 hours for the next 5 days. Note given to excuse him from work tomorrow if he is still feeling vertiginous overnight.I would leave it up to him whether he wants to go to work tomorrow. Advised no climbing above 4 level or looking down steep stairwells etc. Departure - Departure Time of Disposition: 16:43 Disposition: Home, Self-Care 01 Condition: Fair Clinical Impression: Paroxysmal vertigo - Discharge Information *PRESCRIPTION DRUG MONITORING PROGRAM REVIEWED*: Not Applicable *COPY OF PRESCRIPTION DRUG MONITORING REPORT IN PATIENT MANDIE: Not Applicable Prescriptions: Meclizine [Antivert] 12.5 mg PO TID #15 tab Instructions: Vertigo Referrals: Panda Bright MD [Primary Care Provider] - Forms: ED Department Discharge, ED Return to Work/School Form Additional Instructions: Evaluation in the emergency room today in regards to acute onset of severe vertigo with the room spinning even with you lying still at rest. Associated nausea and vomiting even opening your eyes. CT scan of the brain was carried out to rule out a bleed in the cerebellar more back of your brain which controls are movement and coordination. It does not reveal any signs of abnormalities in particular no bleeding or signs of a stroke. Completion of your neurological exam also did not reveal any evidence of stroke. It appears likely that is the left labyrinth which is in the middle ear cavity likely caused today's symptoms. You are able to walk very well in the hallway without staggering or feeling off balance. You were treated with intravenous fluids and Reglan 10 mg IV to stabilize your balance mechanism which appeared to work very well. Suggest using meclizine 12.5 mg tablet every 8 hours for the next 5 days. The first tablet was provided in the emergency room at approximately 1700 hours today. The next tablet should be taken when you get up in the morning and then every 8 hours for 5 days to stabilize belt mechanism and hopefully prevent another bad attack. You may return to work tomorrow if you feel okay in the morning and do not feel off by your primary care provider. Kilter or vertiginous. I will write a note in case you do have symptoms to excuse him for work if necessary. If you are still having any symptoms in 5 to 6 days you should be seen Sepsis Event Note (ED) - Evaluation Sepsis Screening Result: No Definite Risk - Focused Exam Vital Signs: Vital Signs Temp Pulse Resp BP Pulse Ox 07/24/21 15:26 74 16 148/77 H 76 L 07/24/21 14:52 73 20 146/78 H 99 07/24/21 14:22 36.1 C 76 16 160/90 H 99
[2021-07-24] MEDS ORDERED: Metoclopramide 10 MG/2 ML SDV IVPUSH ONE (14:55)
[2021-07-24] MEDS ORDERED: Metoclopramide 10 MG/2 ML SDV ONE (14:56)
[2021-07-24] MEDS ORDERED: Sodium Chloride 0.9% 1,000 ML IV SCH ×2 (15:00→15:15)
[2021-07-24] MEDS ORDERED: Sodium Chloride 0.9% 1,000 ML IV STA (15:11)
[2021-07-24 15:27] VITALS: BP 148/77; PULSE 74
--- NOTE | 2021-07-24 15:38 | CT ---
Head CT Technique: Multiple axial sections through the brain were obtained. Reconstructed coronal and sagittal images were obtained. Intravenous contrast was not utilized. Comparison: Prior head CT study of 03/28/20. Findings: Ventricles along with basal cisterns and sulci over the convexities are within normal limits for the patient's age. No abnormal parenchymal densities are seen. No evidence of intracranial hemorrhage is seen. No midline shift or mass-effect is seen. Bone window settings were reviewed. Visualized mastoid sinuses and paranasal sinuses show nothing acute. No acute calvarial abnormality is appreciated. Impression: 1. Nothing acute is seen on noncontrast head CT study. 2. No change is seen from previous head CT exam. Diagnostic code #1
[2021-07-24] MEDS ORDERED: Meclizine 12.5 MG Tab PO ONE (16:42)
== END 2021-07-24 17:01 | disposition home or self-care (01) ==
LOC: JD.ED 14:13
DX: R42 Dizziness and giddiness (principal); E10.9 Type 1 diabetes mellitus without complications; Z87.891 Personal history of nicotine dependence; Z91.041 Radiographic dye allergy status; Z88.8 Allergy status to other drugs, medicaments and biological substances; Z79.82 Long term (current) use of aspirin
CPT/HCPCS: 36415; 70450; 80053; 82947; 83735; 83880; 84484; 85025; 85379; 85610; 86140; 93005; 96374; 99284; A9270; J2765; J7030; 93010

== ENCOUNTER 2021-12-23 12:00 | Emergency (ER) | payer BC ==
[2021-12-23 12:42] VITALS: BP 144/86; PULSE 60
[2021-12-23] MEDS ORDERED: Sodium Chloride 0.9% 10 ML Syringe FLUSH PRN (13:06)
[2021-12-23] MEDS ORDERED: Insulin Regular, Human 100 Units/ML 3 ML Vial IVPUSH ONE (13:06)
[2021-12-23] MEDS ORDERED: Sodium Chloride 0.9% 1,000 ML IV SCH (13:15)
[2021-12-23] MEDS ORDERED: Lactated Ringers 1,000 ML IV ONE (14:59)
[2021-12-23] MEDS ORDERED: Insulin Regular, Human 100 Units/ML 3 ML Vial SUBCUT ONE (15:01)
== END 2021-12-23 17:37 | disposition home or self-care (01) ==
LOC: JD.ED 12:00
DX: E10.65 Type 1 diabetes mellitus with hyperglycemia (principal); E86.0 Dehydration; I25.10 Atherosclerotic heart disease of native coronary artery without angina pectoris; I10 Essential (primary) hypertension; E78.00 Pure hypercholesterolemia, unspecified; Z91.041 Radiographic dye allergy status; Z88.8 Allergy status to other drugs, medicaments and biological substances; Z79.82 Long term (current) use of aspirin; Z87.891 Personal history of nicotine dependence
CPT/HCPCS: 36415; 80053; 82947; 85025; 99284; J1815; J7030; J7120

== ENCOUNTER 2022-01-07 12:01 | Emergency (ER) | payer BC ==
[2022-01-07 12:21] VITALS: BP 145/93; PULSE 62
[2022-01-07] MEDS ORDERED: Meclizine 12.5 MG Tab PO ONE (15:06)
== END 2022-01-07 16:00 | disposition home or self-care (01) ==
LOC: JD.ED 12:01
DX: R42 Dizziness and giddiness (principal); I25.10 Atherosclerotic heart disease of native coronary artery without angina pectoris; E78.00 Pure hypercholesterolemia, unspecified; I10 Essential (primary) hypertension; E10.9 Type 1 diabetes mellitus without complications; Z91.041 Radiographic dye allergy status; Z88.8 Allergy status to other drugs, medicaments and biological substances; Z79.82 Long term (current) use of aspirin; Z79.4 Long term (current) use of insulin; Z79.899 Other long term (current) drug therapy
CPT/HCPCS: 36415; 80053; 85025; 93005; 93225; 93226; 99284; A9270

== ENCOUNTER 2022-12-16 15:14 | Emergency (ER) | payer BC ==
[2022-12-16] MEDS ORDERED: Sodium Chloride 0.9% 1,000 ML IV STA (15:39)
[2022-12-16] MEDS ORDERED: Metoclopramide 10 MG/2 ML SDV IVPUSH ONE (15:40)
[2022-12-16 16:06] LABS: ESTIMATED GFR 63 mL/min (>60)
[2022-12-16] MEDS ORDERED: Meclizine 25 MG Tab PO ONE (16:30)
[2022-12-16] MEDS ORDERED: Ondansetron 4 MG/2 ML SDV IVPUSH ONE (16:31)
[2022-12-16] MEDS ORDERED: diphenhydrAMINE 50 MG/ML SDV IVPUSH ONE (16:31)
[2022-12-16] MEDS ORDERED: Insulin Regular, Human 100 Units/ML 3 ML Vial SUBCUT ONE ×3 (16:33→18:49)
[2022-12-16 17:03] LABS: CORONAVIRUS COVID-19 NAA NEGATIVE (NEGATIVE)
[2022-12-16 19:17] VITALS: BP 131/73; PULSE 71
== END 2022-12-16 19:16 | disposition home or self-care (01) ==
LOC: JD.ED 15:14
DX: H81.10 Benign paroxysmal vertigo, unspecified ear (principal); R11.2 Nausea with vomiting, unspecified; I25.10 Atherosclerotic heart disease of native coronary artery without angina pectoris; E78.00 Pure hypercholesterolemia, unspecified; I10 Essential (primary) hypertension; E10.9 Type 1 diabetes mellitus without complications; Z91.041 Radiographic dye allergy status; Z88.8 Allergy status to other drugs, medicaments and biological substances; Z20.822 Contact with and (suspected) exposure to COVID-19
CPT/HCPCS: 0241U; 36415; 80053; 82947; 83735; 85025; 86140; 93005; 96361; 96374; 96375; 99285; J1200; J1815; J2405; J2765; J7030

== ENCOUNTER 2024-02-09 16:08 | Emergency (ER) | payer BC ==
[2024-02-09] MEDS: diphenhydrAMINE 50 MG/ML SDV IVPUSH ONE (17:15)
[2024-02-09] MEDS: Metoclopramide 10 MG/2 ML SDV IVPUSH ONE (17:17)
[2024-02-09] MEDS: LORazepam 2 MG/ML SDV IVPUSH ONE (17:18)
[2024-02-09] MEDS: Sodium Chloride 0.9% 1,000 ML IV SCH (17:19)
[2024-02-09 17:31] LABS: BASOPHILS ABSOLUTE AUTO 0.1 K/mm3 (0.0-0.2); BASOPHILS PERCENT AUTO 0.9 % (0.0-1.0); EOSINOPHILS ABSOLUTE AUTO 0.1 K/mm3 (0.0-0.4); EOSINOPHILS PERCENT AUTO 0.9 % (0.0-6.0); HEMATOCRIT 41.2 % (42.0-52.0); HEMOGLOBIN 14.8 gm/dl (14.0-18.0); IMMATURE GRAN ABSOLUTE AUTO 0.01 K/mm3 (0.00-0.05); IMMATURE GRAN PERCENT AUTO 0.2 % (0.0-0.4); LYMPHOCYTES ABSOLUTE AUTO 1.9 K/mm3 (1.0-4.8); LYMPHOCYTES PERCENT AUTO 28.8 % (24.0-44.0); MEAN CORPUSCULAR HEMOGLOBIN 30.2 pg (28.0-32.0); MEAN CORPUSCULAR HGB CONC 35.9 g/dl (32.0-36.0); MEAN CORPUSCULAR VOLUME 84.1 fl (83.0-99.0); MEAN PLATELET VOLUME 10.1 fl (9.4-12.4); MONOCYTES ABSOLUTE AUTO 0.5 K/mm3 (0.0-0.8); MONOCYTES PERCENT AUTO 8.4 % (0.0-8.0); NEUTROPHILS ABSOLUTE AUTO 3.9 K/mm3 (1.8-7.7); NEUTROPHILS PERCENT AUTO 60.8 % (41.0-71.0); PLATELET COUNT,PLT 174 K/mm3 (150-400); WHITE BLOOD CELL COUNT,WBC 6.43 K/mm3 (3.9-11.3)
[2024-02-09 17:39] LABS: A/G RATIO 1.4 (1-2); ALBUMIN 4.5 g/dl (3.4-5.0); ANION GAP 18.9 (5-15); BILIRUBIN TOTAL 0.9 mg/dL (0.2-1.0); BUN/CREATININE RATIO 19.2 (14-18); CALCIUM 9.9 mg/dL (8.5-10.1); CREATININE 1.2 mg/dL (0.7-1.3); EST CRCL DRUG DOSING (CG) 68.85 mL/min; POTASSIUM,K 3.9 mEq/L (3.5-5.1); PROTEIN TOTAL,TP 7.7 g/dl (6.4-8.2)
[2024-02-09 19:34] VITALS: BP 148/85; PULSE 63
== END 2024-02-09 19:15 | disposition home or self-care (01) ==
LOC: JD.ED 16:08
DX: H81.10 Benign paroxysmal vertigo, unspecified ear (principal); I10 Essential (primary) hypertension; I25.10 Atherosclerotic heart disease of native coronary artery without angina pectoris; E78.00 Pure hypercholesterolemia, unspecified; E10.9 Type 1 diabetes mellitus without complications; Z79.82 Long term (current) use of aspirin; Z79.899 Other long term (current) drug therapy; Z79.4 Long term (current) use of insulin; Z88.6 Allergy status to analgesic agent; Z91.041 Radiographic dye allergy status
CPT/HCPCS: 36415; 80053; 82947; 85025; 96361; 96374; 96375; 99283; 99284-25; J1200; J2060; J2765; J7030

== ENCOUNTER 2024-12-29 17:01 | Emergency (ER) | payer BC ==
[2024-12-29 18:40] LABS: BASOPHILS ABSOLUTE AUTO 0.1 K/mm3 (0.0-0.2); EOSINOPHILS ABSOLUTE AUTO 0.1 K/mm3 (0.0-0.4); EOSINOPHILS PERCENT AUTO 1.5 % (0.0-6.0); HEMATOCRIT 41.3 % (42.0-52.0); IMMATURE GRAN ABSOLUTE AUTO 0.01 K/mm3 (0.00-0.05); IMMATURE GRAN PERCENT AUTO 0.1 % (0.0-0.4); LYMPHOCYTES ABSOLUTE AUTO 2.6 K/mm3 (1.0-4.8); LYMPHOCYTES PERCENT AUTO 32.5 % (24.0-44.0); MEAN CORPUSCULAR HEMOGLOBIN 29.7 pg (28.0-32.0); MEAN CORPUSCULAR HGB CONC 33.9 g/dl (32.0-36.0); MEAN CORPUSCULAR VOLUME 87.7 fl (83.0-99.0); MEAN PLATELET VOLUME 9.2 fl (9.4-12.4); MONOCYTES ABSOLUTE AUTO 0.7 K/mm3 (0.0-0.8); MONOCYTES PERCENT AUTO 8.4 % (0.0-8.0); NEUTROPHILS ABSOLUTE AUTO 4.5 K/mm3 (1.8-7.7); NEUTROPHILS PERCENT AUTO 56.5 % (41.0-71.0); PLATELET COUNT,PLT 188 K/mm3 (150-400); RED BLOOD CELL COUNT 4.71 M/mm3 (4.52-5.90); WHITE BLOOD CELL COUNT,WBC 8.02 K/mm3 (3.9-11.3)
[2024-12-29 19:10] LABS: A/G RATIO 1.2 (1-2); ALANINE AMINOTRANSFERASE,ALT 28 U/L (16-63); ALBUMIN 3.7 g/dl (3.4-5.0); ALKALINE PHOSPHATASE 55 U/L (46-116); ASPARTATE AMNIOTRANSFERASE,AST 22 U/L (15-37); BILIRUBIN TOTAL 0.5 mg/dL (0.2-1.0); BLOOD UREA NITROGEN,BUN 20 mg/dL (7-18); BUN/CREATININE RATIO 18.2 (14-18); CALCIUM 8.8 mg/dL (8.5-10.1); CARBON DIOXIDE,CO2 29 mEq/L (21-32); CHLORIDE,CL 107 mEq/L (98-107); CREATININE 1.1 mg/dL (0.7-1.3); EST CRCL DRUG DOSING (CG) 67.36 mL/min; ESTIMATED GFR 76 mL/min (>60); GLUCOSE RANDOM 76 mg/dL (70-99); PROTEIN TOTAL,TP 6.7 g/dl (6.4-8.2); SODIUM,NA 143 mEq/L (136-145); TROPONIN I HIGH SENSITIVITY 10 pg/mL (<=76)
[2024-12-29 19:11] LABS: C-REACTIVE PROTEIN < 0.05 mg/dL (<0.30)
[2024-12-29] MEDS: amLODIPine 5 MG Tab PO ONE (20:28)
[2024-12-29 20:32] VITALS: BP 142/88
[2024-12-29 20:39] VITALS: PULSE 62
== END 2024-12-29 20:39 | disposition home or self-care (01) ==
LOC: JD.ED 17:01
DX: H53.9 Unspecified visual disturbance (principal); R51.9 Headache, unspecified; I10 Essential (primary) hypertension; I25.10 Atherosclerotic heart disease of native coronary artery without angina pectoris; E78.00 Pure hypercholesterolemia, unspecified; E10.9 Type 1 diabetes mellitus without complications; Z79.82 Long term (current) use of aspirin; Z79.899 Other long term (current) drug therapy; Z79.4 Long term (current) use of insulin; Z91.041 Radiographic dye allergy status; Z88.6 Allergy status to analgesic agent; Z68.28 Body mass index [BMI] 28.0-28.9, adult
CPT/HCPCS: 36415; 70450; 80053; 84484; 85025; 86140; 93005; 99284; A9270